=== PATIENT | male | born 1945 | race Caucasian/White ===

== ENCOUNTER 2025-06-17 09:56 | Outpatient (AMB) | payer MEDICARE, BC, SELFPAY ==
[2025-06-17 10:03] VITALS: BMI 27.1
--- NOTE | 2025-06-17 10:03 | A.PHYSOV_ITS ---
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 Patient states pain began after a walk in [facility]. Pain travels to knee area from inner left thigh Lithograph Press Operator Required: No Allergies No Known Allergies Allergy (Verified 06/17/25 10:05) HPI Comments Details: History of Present Illness The patient is an 80 year old male presenting with left leg pain. He reports the onset of pain was in the first part of May, a few weeks ago, and it started without a specific injury or preceding physical activity. The pain is located in the left leg, radiating from the groin down to the inner aspect of the knee, and it primarily occurs only when he is walking. The patient feels the pain while sitting, but it is not as severe. He takes Aleve, which helps to alleviate his symptoms. He has a history of back soreness for a while but denies any acute back pain associated with his current leg pain. The patient is retired and previously worked as a welder gas automatic. He was referred by Dr. Huang, general surgeon. He confirms a previous CT scan of the abdomen but has not had x-rays of his hips or an MRI of his low back to his knowledge. Patient presented accompanied by his . Pain Description - Onset and Timing: The pain started a couple of weeks ago, in the first part of May, without any known injury. - Location and Radiation: The pain originates in the left groin and radiates down the inner aspect of the leg to the knee, causing difficulty with walking. - Exacerbating Factors: The pain primarily occurs only when walking and is also elicited by leaning forward and lifting the left leg. - Relieving Factors: The pain is less bothersome when sitting, and taking Aleve provides some relief. Results - Imaging: A CT scan of the abdomen was previously performed. [facility] Medical History (Updated 06/17/25 @ 10:45 by Murray Heredia DO) Degenerative joint disease of left hip Left hip pain Surgical History (Updated 06/17/25 @ 10:07 by Joyce Jimenez MA) History of hernia repair History of parotidectomy Social History (Updated 06/17/25 @ 10:08 by Joyce Jimenez MA) Household Members: Spouse Alcohol intake: current Alcohol intake frequency: holidays/special occasions only Patient Tobacco Use Status: Former Tobacco user Use of substances other than those prescribed or required for medical reasons: No Current occupational status: retired Review of Systems Narrative Review of Systems - Musculoskeletal: Reports pain in the left leg radiating from the groin to the inner knee, which causes difficulty walking. Reports a history of back soreness. Denies change in bowel bladder habits. Denies any fever or chills. Physical Exam Exam Exam: Physical Exam - Musculoskeletal: Pain is reproduced with trunk flexion. Tenderness to palpation is present over the left groin. Pain and weakness noted with resisted left hip flexion. Right hip flexion is strong. Bilateral lower extremity strength is intact with foot dorsiflexion against resistance. - Neurologic: He was not able to cooperate fully with muscle motor testing involving flexion of his left hip. It was weaker, however most likely secondary to pain associated with it. Left patellar reflex was slightly diminished. No focal motor deficits distally. Patient demonstrated no upper motor neuron signs. Lumbar extension was restricted. The SI provocative maneuvers were negative. No significant tenderness with palpation over SI sulci or lumbar paraspinal muscles. Considerable degree of pain and discomfort with internal rotation of the left hip. No pain with internal rotation of the right hip. Vital Signs: BMI result Body Mass Index 27.1 Assessment & Plan Assessment & Plan (1) Left hip pain: Code(s): M25.552 - Pain in left hip Category: Medical (2) Degenerative joint disease of left hip: Code(s): M16.12 - Unilateral primary osteoarthritis, left hip Category: Medical Plan Pain Management - Analgesia: The patient is taking Aleve, which he reports helps with his pain. - Activities of Daily Living: His ability to walk is impaired by the pain. Plan Patient was informed and verbally consented to the use of an ambient scribe for clinic note documentation during this visit. 1. Left Leg Pain The patient's presentation of left leg pain, which radiates from the groin to the inner thigh, is suspicious for a hip joint etiology, as this is a common referral pattern. The fact that his pain is alleviated by naproxen, an anti- inflammatory, further supports the hypothesis of a joint problem. To investigate this further, an x-ray of the hip will be ordered. A referral will be provided for the patient to get the x-ray at the [place] office, and the results will be sent for review. Discussion Notes I explained to the patient that the pain in his inner thigh is likely referred from his hip joint, and I showed him a diagram to illustrate this. I recommended an x-ray of his hip to evaluate for a joint problem, as this is a likely cause given his symptoms and response to anti-inflammatory medication. I provided him with a printed referral for the x-ray and informed him he could go to the [place] office at his convenience without an appointment. I will review the x- ray results once they are received and follow up with him. Patient Instructions - Please go for an x-ray of your hip. - You can go to the [place] office to have the x-ray done. - You do not need an appointment for the x-ray; you can just show up. - I will receive the results and will be in touch. - You may continue taking Aleve as it seems to be helping your pain. Orders: Orders XR hip LT w PEL1V Today M16.12 - Unilateral primary osteoarthritis, left hip, M25.552 - Pain in left hip Coding Level of Care Code New Pt Level 4 (79504) Add On Problem Visit Only Diagnoses Left hip pain M25.552 Degenerative joint disease of left hip M16.12
--- OUTSIDE RECORDS SUMMARY | 2025-06-17 11:08 | XMS_ITS | Encounter Summary ---
Author Organization [facility] Address [address] [place] [address] Care Team Providers Care Herbicide Service Sales Representative Name Role Phone Bryanna Zelaya MD Primary Care Provider [phone] Encounter Details Date Type Department Care Team (Latest Contact Info) Description 06/17/2025 11:08 AM [facility] Hospital Encounter XRAY - [address] [place] [phone] Pain in left hip; Unilateral primary osteoarthritis, left hip Social History Tobacco Use Types Packs/Day Years Used Date Smoking Tobacco: Former Cigarettes 0 Q uit: 07/02/1972 Smokeless Tobacco: Never Alcohol Use Standard Drinks/Week Comments Yes 0 (1 standard drink = 0.6 oz pur e alcohol) Housing Instability Answer Date Recorde d Are you worried that in the next 2 months you may not have stable housing? No 01/12/2025 Food Access & Nutrition Answer Date Rec orded Do you have access to a vari ety of food including fruits and vegetables? Yes 01/12/2025 Access to Healthcare Answer Date Record ed Within the last 3 months, noemi parrish many times did you visit the emergency department for your medical care? 2 01/12/2025 Financial Risk Answer Date Recorded How hard is it for you to pa y for the very basics like food, housing, medical care, and air conditioning / heating? Not very hard 01/12/2025 Transportation Answer Date Recorded Has the lack of transportati on kept you from meetings, work, or from getting things needed for daily living? No Has the lack of transportati on kept you from medical appointments or from getting medications? No 01/12/2025 Food Risk Answer Date Recorded Within the past 12 months we worried whether our food would run out before we got money to buy more. Never true 01/12/2025 Within the past 12 months th e food we bought just didn't last and we didn't have money to get more. Never true 01/12/2025 Education Answer Date Recorded Do you think completing more education or training, like finishing a GED, going to college, or learning a trade, would be helpful for you? N/A 01/12/2025 Employment and Income Answer Date Recor ded During the last four weeks, have you been actively looking for work? No 01/12/2025 Living Situation Answer Date Recorded What is your living situation? Unrecognized valu e 01/12/2025 Sex and Gender Information Value Date Recorded Sex Assigned at Male 10/13/2024 4:04 PM EDT Legal Sex Male 10:22 PM EST Gender Identity Male 10/13/2024 4:04 PM EDT Sexual Orientation Straight 10/13/2024 4: 04 PM EDT documented as of this encounter Plan of Treatment Upcoming Encounters Date Type Department Care Team (Late st Contact Info) Description 07/01/2025 1:00 PM EST Office Visit Adult Medicine [address] [phone] Bryanna Zelaya MD [address] [place] [address] 01/25/2026 11:00 AM EDT Ancillary Procedure [facility] [address] [facility] [address] [place] [phone] Pending Results Name Type Priority Associated Diagnoses Date /Time XR Hip 2-3 Views Left Imaging Routine Pain in left hip Unilateral primary osteoarthritis, left hip 06/17/2025 11:20 AM EST Scheduled Orders Name Type Priority Associated Diagnoses Orde r Schedule XR Hip 2-3 Views Left Imaging Routine Pain in left hip Unilateral primary osteoarthritis, left hip Once for 1 Occurrences starting 06/17/2025 until 06/17/2025 documented as of this encounter Visit Diagnoses Diagnosis Pain in left hip Unilateral primary osteoarthritis, left hip Encounter for adjustment or management of cardiac device documented in this encounter Additional Health Concerns Assessment Noted Time PHQ-9 Depression Total Score: 0 05/14/20 25 3:32 PM EST documented as of this encounter Care Teams Herbicide Service Sales Representative Relationship Specialty Start Date End Date Bryanna Zelaya MD [address] [place] [address] PCP - General 03/15/11 documented as of this encounter
--- OUTSIDE RECORDS SUMMARY | 2025-06-17 11:57 | XMS_ITS | Encounter Summary ---
Author Organization [facility] Address [address] [place] [address] Phone Care Team Providers Care Pigment Making Supervisor Name Role Phone Bryanna Zelaya MD Primary Care Provider [phone] Philip Ritter MD Unavailable [phone] Alexandra Carpenter RN Unavailable [email or web address] Lisa Xiong RN Unavailable [email or web address] Encounter Details Date Type Department Care Team (Late st Contact Info) Description 10/09/2022 Procedure Pass [facility] [address] [place] [address] Social History Tobacco Use Types Packs/Day Years Used Date Smoking Tobacco: Former Cigarettes Q uit: 09/22/1970 Smokeless Tobacco: Never Alcohol Use Standard Drinks/Week Comments Not Currently 0 (1 standard drink = 0.6 oz pur e alcohol) Sex and Gender Information Value Date Recorded Sex Assigned at Male 07/09/2017 9:36 AM EST Legal Sex Male 2:02 PM EDT Gender Identity Male Sexual Orientation Straight documented as of this encounter Plan of Treatment Upcoming Encounters Date Type Department Care Team (Late st Contact Info) Description 04/17/2025 Procedure Pass [address] [address] 04/17/2025 Procedure Pass [address] [address] 07/06/2025 1:00 PM EST Appointment [facility], Ct Scan - [facility] [address] [place] [address] Philip Ritter MD [address] [place] [address] 7 [place] [address] [email or web address] 07/14/2025 11:30 AM EST Office Visit [facility] [address] [place] [address] Philip Ritter MD [address] [place] [address] 7 [place] [address] [email or web address] documented as of this encounter Visit Diagnoses Not on filedocumented in this encounter Care Teams Pigment Making Supervisor Relationship Specialty Start Date End Date Bryanna Zelaya MD [address] [place] [address] PCP - General Internal Medicine 11/15/15 Philip Ritter MD [address] [place] [address] [email or web address] Primary Oncologist Surgical Oncology 09/05/22 Alexandra Carpenter, RN [address] [place] [phone] [email or web address] Primary Infusion Nurse 09/07/22 Lisa Xiong RN [address] [place] [address] [email or web address] Associate Infusion Nurse 09/14/22 documented as of this encounter Additional Source Comments The information contained in this document represents components of the legal health record. It is not the complete legal health record.[facility]
--- OUTSIDE RECORDS SUMMARY | 2025-06-17 11:57 | XMS_ITS | Encounter Summary ---
Author Organization [facility] Address [address] [place] [address] Phone Care Team Providers Care Vp Informatics Name Role Phone Bryanna Zelaya MD Primary Care Provider [phone] Philip Ritter MD Unavailable [phone] Alexandra Carpenter RN Unavailable [email or web address] Lisa Xiong RN Unavailable [email or web address] Encounter Details Date Type Department Care Team (Late st Contact Info) Description 02/14/2023 Procedure Pass [facility], Ct Scan - [address] [id number] Social History Tobacco Use Types Packs/Day Years Used Date Smoking Tobacco: Former Cigarettes Q uit: 09/22/1970 Smokeless Tobacco: Never Alcohol Use Standard Drinks/Week Comments Not Currently 0 (1 standard drink = 0.6 oz pur e alcohol) ' few times per week Education Answer Date Recorded Are you interested in more education? Not on zac e 10/27/2022 Are you concerned about learning? Not on file 10/27/2022 No 10/27/2022 No 10/27/2022 Digital Access Answer Date Recorded No 11/22/2022 No 11/22/2022 Reliable internet access at home? Not on file 11/22/2022 Device with a working camera? Not on file Sex and Gender Information Value Date Recorded Sex Assigned at Male 07/09/2017 9:36 AM EST Legal Sex Male 2:02 PM EDT Gender Identity Male Sexual Orientation Straight documented as of this encounter Plan of Treatment Upcoming Encounters Date Type Department Care Team (Late st Contact Info) Description 04/17/2025 Procedure Pass [address] [address] 04/17/2025 Procedure Pass [address] [address] 07/06/2025 1:00 PM EST Appointment [address] [address] Philip Ritter MD [address] [place] [address] [email or web address] 07/14/2025 11:30 AM EST Office [facility] [address] [place] [address] Philip Ritter MD [address] [place] [phone] VANESSA@[email or web address] documented as of this encounter Visit Diagnoses Not on filedocumented in this encounter Care Teams Vp Informatics Relationship Specialty Start Date End Date Bryanna Zelaya MD [address] [place] [address] PCP - General Internal Medicine 11/15/15 Philip Ritter MD [address] [place] [address] [email or web address] Primary Oncologist Surgical Oncology 09/05/22 Alexandra Carpenter RN [address] [place] [phone] [email or web address] Primary Infusion Nurse 09/07/22 Lisa Xiong RN [address] [place] [address] [email or web address] Associate Infusion Nurse 09/14/22 documented as of this encounter Additional Source Comments The information contained in this document represents components of the legal health record. It is not the complete legal health record.[facility]
--- OUTSIDE RECORDS SUMMARY | 2025-06-17 11:57 | XMS_ITS | Encounter Summary ---
Author Organization [facility] Address [address] [place] [address] Phone Care Team Providers Care Medical Sales Specialist Name Role Phone Bryanna Zelaya MD Primary Care Provider [phone] Philip Ritter MD Unavailable [phone] Alexandra Carpenter RN Unavailable [email or web address] Lisa Xiong RN Unavailable [email or web address] Encounter Details Date Type Department Care Team (Late st Contact Info) Description 12/24/2024 Procedure Pass [facility], Ct Scan - [address] [id number] Social History Tobacco Use Types Packs/Day Years [...] with a working camera? Not on file Intimate Partner Violence Answer Date R ecorded Are you denied basic needs s uch as food, clothing, or medical care? No 08/24/2023 In the past 12 months have y ou been in a relationship with a person who hurts, threatens, or tries to control you? No 08/24/2023 Are you denied basic needs s uch as food, clothing, or medical care? No 08/24/2023 In the past 12 months have y ou been in a relationship with a person who hurts, threatens, or tries to control you? No 08/24/2023 Sex and Gender Information Value Date Recorded Sex Assigned at Male 07/09/2017 9:36 AM EST Legal Sex Male 2:02 PM EDT Gender Identity Male Sexual Orientation Straight documented as of this encounter Plan of Treatment Upcoming Encounters Date Type Department Care Team (Late st Contact Info) Description 04/17/2025 Procedure Pass [address] [address] 04/17/2025 Procedure Pass [address] [address] 07/06/2025 1:00 PM EST Appointment [address] [address] Philip Ritter MD [address] [place] [address] [email or web address] 07/14/2025 11:30 AM EST Office [facility] [address] [place] [address] Philip Ritter MD [address] [place] [address] VANESSA@[email or web address] documented as of this encounter Visit Diagnoses Not on filedocumented in this encounter Care Teams Medical Sales Specialist Relationship Specialty Start Date End Date Bryanna Zelaya MD [address] [place] [phone] PCP - General Internal Medicine 11/15/15 Philip Ritter MD [address] [place] [address] [email or web address] Primary Oncologist Surgical Oncology 09/05/22 Alexandra Carpenter, RN [address] [place] [phone] [email or web address] Primary Infusion Nurse 09/07/22 Lisa Xiong RN [address] [place] [address] [email or web address] Associate Infusion Nurse 09/14/22 documented as of this encounter Additional Source Comments The information contained in this document represents components of the legal health record. It is not the complete legal health record.[facility]
--- OUTSIDE RECORDS SUMMARY | 2025-06-17 11:57 | XMS_ITS | Encounter Summary ---
Author Organization [facility] Address [address] [place] [address] Phone Care Team Providers Care Small Products Assembler Name Role Phone Bryanna Zelaya MD Primary Care Provider [phone] Philip Ritter MD Unavailable [phone] Alexandra Carpenter RN Unavailable [email or web address] Lisa Xiong RN Unavailable [email or web address] Encounter Details Date Type Department Care Team (Late st Contact Info) Description 07/04/2024 Procedure Pass [facility], Ct Scan - [address] [id number] Social History Tobacco Use Types Packs/Day Years [...] st Contact Info) Description 04/17/2025 Procedure Pass [address] [address] 04/17/2025 Procedure Pass [address] [address] 07/06/2025 1:00 PM EST Appointment [address] [address] Philip Ritter MD [address] [place] [address] VANESSA@[email or web address] 07/14/2025 11:30 AM EST Office [facility] [address] [place] [address] Philip Ritter MD [address] [place] [address] VANESSA@[email or web address] documented as of this encounter Visit Diagnoses Not on filedocumented in this encounter Care Teams Small Products Assembler Relationship Specialty Start Date End Date Bryanna Zelaya MD [address] [place] [phone] PCP - General Internal Medicine 11/15/15 Philip Ritter MD [address] [place] [address] [email or web address] Primary Oncologist Surgical Oncology 09/05/22 Alexandra Carpenter, RN [address] [place] [phone] [email or web address] Primary Infusion Nurse 09/07/22 Lisa Xiong RN [address] [place] [phone] [email or web address] Associate Infusion Nurse 09/14/22 documented as of this encounter Additional Source Comments The information contained in this document represents components of the legal health record. It is not the complete legal health record.[facility]
--- OUTSIDE RECORDS SUMMARY | 2025-06-17 11:57 | XMS_ITS | Encounter Summary ---
Author Organization [facility] Address [address] [place] [address] Phone Care Team Providers Care Integrity Director Name Role Phone Bryanna Zelaya MD Primary Care Provider [phone] Philip Ritter MD Unavailable [phone] Alexandra Carpenter RN Unavailable [email or web address] Lisa Xiong RN Unavailable [email or web address] Encounter Details Date Type Department Care Team (Late st Contact Info) Description 12/24/2024 Procedure Pass [facility], Ct Scan - [address] [id number] Social History Tobacco Use Types Packs/Day Years [...] st Contact Info) Description 04/17/2025 Procedure Pass [address] [address] 04/17/2025 Procedure Pass [address] [address] 07/06/2025 1:00 PM EST Appointment [address] [address] Philip Ritter MD [address] [place] [address] [email or web address] 07/14/2025 11:30 AM EST Office [facility] [address] [place] [address] Philip Ritter MD [address] [place] [address] VANESSA@[email or web address] documented as of this encounter Visit Diagnoses Not on filedocumented in this encounter Care Teams Integrity Director Relationship Specialty Start Date End Date Bryanna Zelaya MD [address] [place] [phone] PCP - General Internal Medicine 11/15/15 Philip Ritter MD [address] [place] [address] [email or web address] Primary Oncologist Surgical Oncology 09/05/22 Alexandra Carpenter, RN [address] [place] [phone] [email or web address] Primary Infusion Nurse 09/07/22 Lisa Xiong RN [address] [place] [address] [email or web address] Associate Infusion Nurse 09/14/22 documented as of this encounter Additional Source Comments The information contained in this document represents components of the legal health record. It is not the complete legal health record.[facility]
--- OUTSIDE RECORDS SUMMARY | 2025-06-17 11:57 | XMS_ITS | Encounter Summary ---
Author Organization [facility] Address [address] [place] [address] Phone Care Team Providers Care Nurse School Name Role Phone Bryanna Zelaya MD Primary Care Provider [phone] Philip Ritter MD Unavailable [phone] Alexandra Carpenter RN Unavailable [email or web address] Lisa Xiong RN Unavailable [email or web address] Encounter Details Date Type Department Care Team (Late st Contact Info) Description 10/13/2022 Procedure Pass [facility] Cardiovascular And Interventional Radiology [address] [place] [address] Social History Tobacco Use Types Packs/Day Years [...] st Contact Info) Description 04/17/2025 Procedure Pass [address] [address] 04/17/2025 Procedure Pass [address] [address] 07/06/2025 1:00 PM EST Appointment [facility], Ct Scan - [facility] [place] [address] [place] [address] hPilip Ritter MD [address] [place] [address] 7 [place] [address] [email or web address] 07/14/2025 11:30 AM EST Office Visit [facility] [address] [place] [phone] Philip Ritter MD [address] [place] [address] 7 [place] [address] VANESSA@[email or web address] documented as of this encounter Visit Diagnoses Not on filedocumented in this encounter Care Teams Nurse School Relationship Specialty Start Date End Date Bryanna Zelaya MD [address] [place] [address] PCP - General Internal Medicine 11/15/15 Philip Ritter MD [address] [place] [address] [email or web address] Primary Oncologist Surgical Oncology 09/05/22 Alexandra Carpenter, RN [address] [place] [phone] [email or web address] Primary Infusion Nurse 09/07/22 Lisa Xiong RN [address] [place] [address] [email or web address] Associate Infusion Nurse 09/14/22 documented as of this encounter Additional Source Comments The information contained in this document represents components of the legal health record. It is not the complete legal health record.[facility]
--- OUTSIDE RECORDS SUMMARY | 2025-06-17 11:57 | XMS_ITS | Encounter Summary ---
Author Organization [facility] Address [address] [place] [address] Phone Care Team Providers Care Buzzle Buffer Name Role Phone Bryanna Zelaya MD Primary Care Provider [phone] Philip Ritter MD Unavailable [phone] Alexandra Carpenter RN Unavailable [email or web address] Lisa Xiong RN Unavailable [email or web address] Encounter Details Date Type Department Care Team (Late st Contact Info) Description 07/04/2024 Procedure Pass [facility], Ct Scan - [address] [id number] Social History Tobacco Use Types Packs/Day Years [...] st Contact Info) Description 04/17/2025 Procedure Pass [address] [address] 04/17/2025 Procedure Pass [address] [address] 07/06/2025 1:00 PM EST Appointment [address] [address] Philip Ritter MD [address] [place] [address] VANESSA@[email or web address] 07/14/2025 11:30 AM EST Office [facility] [address] [place] [address] Philip Ritter MD [address] [place] [address] VANESSA@[email or web address] documented as of this encounter Visit Diagnoses Not on filedocumented in this encounter Care Teams Buzzle Buffer Relationship Specialty Start Date End Date Bryanna Zelaya MD [address] [place] [phone] PCP - General Internal Medicine 11/15/15 Philip Ritter MD [address] [place] [address] VANESSA@[email or web address] Primary Oncologist Surgical Oncology 09/05/22 Alexandra Carpenter, RN [address] [place] [phone] [email or web address] Primary Infusion Nurse 09/07/22 Lisa Xiong RN [address] [place] [address] [email or web address] Associate Infusion Nurse 09/14/22 documented as of this encounter Additional Source Comments The information contained in this document represents components of the legal health record. It is not the complete legal health record.[facility]
--- OUTSIDE RECORDS SUMMARY | 2025-06-17 11:57 | XMS_ITS | Encounter Summary ---
Author Organization [facility] Address [address] [place] [address] Phone Care Team Providers Care Painter Sign Maintenance Name Role Phone Bryanna Zelaya MD Primary Care Provider [phone] Philip Ritter MD Unavailable [phone] Alexandra Carpenter RN Unavailable [email or web address] Lisa Xiong RN Unavailable [email or web address] Encounter Details Date Type Department Care Team (Late st Contact Info) Description 02/14/2023 Procedure Pass [facility], Ct Scan - [address] [id number] Social History Tobacco Use Types Packs/Day Years [...] st Contact Info) Description 04/17/2025 Procedure Pass [address] [address] 04/17/2025 Procedure Pass [address] [address] 07/06/2025 1:00 PM EST Appointment [address] [address] Philip Ritter MD [address] [place] [address] VANESSA@[facility] 07/14/2025 11:30 AM EST Office [facility] [address] [place] [address] Philip Ritter MD [address] [place] [address] VANESSA@[facility] documented as of this encounter Visit Diagnoses Not on filedocumented in this encounter Care Teams Painter Sign Maintenance Relationship Specialty Start Date End Date Bryanna Zelaya MD [address] [place] [address] PCP - General Internal Medicine 11/15/15 Philip Ritter MD [address] [place] [address] [email or web address] Primary Oncologist Surgical Oncology 09/05/22 Alexandra Carpenter RN [address] [place] [phone] [email or web address] Primary Infusion Nurse 09/07/22 Lisa Xiong RN [address] [place] [address] [email or web address] Associate Infusion Nurse 09/14/22 documented as of this encounter Additional Source Comments The information contained in this document represents components of the legal health record. It is not the complete legal health record.[facility]
--- OUTSIDE RECORDS SUMMARY | 2025-06-17 11:57 | XMS_ITS | Encounter Summary ---
Author Organization [facility] Address [address] [place] [address] Phone Care Team Providers Care Pi/Senior Research Associate Name Role Phone Bryanna Zelaya MD Primary Care Provider [phone] Philip Ritter MD Unavailable [phone] Alexandra Carpenter RN Unavailable [email or web address] Lisa Xiong RN Unavailable [email or web address] Encounter Details Date Type Department Care Team (Late st Contact Info) Description 05/04/2023 Procedure Pass [facility], Ct Scan - [address] [phone] Social History Tobacco Use Types Packs/Day Years [...] st Contact Info) Description 04/17/2025 Procedure Pass [address] [address] 04/17/2025 Procedure Pass [address] [address] 07/06/2025 1:00 PM EST Appointment [address] [address] Philip Ritter MD [address] [place] [address] VANESSA@[email or web address] 07/14/2025 11:30 AM EST Office [facility] [address] [place] [address] Philip Ritter MD [address] [place] [address] VANESSA@[email or web address] documented as of this encounter Visit Diagnoses Not on filedocumented in this encounter Care Teams Pi/Senior Research Associate Relationship Specialty Start Date End Date Bryanna Zelaya MD [address] [place] [address] PCP - General Internal Medicine 11/15/15 Philip Ritter MD [address] [place] [address] VANESSA@[email or web address]. [email or web address] Primary Oncologist Surgical Oncology 09/05/22 Alexandra Carpenter RN [address] [place] [phone] [email or web address] Primary Infusion Nurse 09/07/22 Lisa Xiong RN [address] [place] [address] [email or web address] Associate Infusion Nurse 09/14/22 documented as of this encounter Additional Source Comments The information contained in this document represents components of the legal health record. It is not the complete legal health record.[facility]
--- OUTSIDE RECORDS SUMMARY | 2025-06-17 11:57 | XMS_ITS | Encounter Summary ---
Author Organization [facility] Address [address] [place] [address] Phone Care Team Providers Care Candle Wicker Name Role Phone Bryanna Zelaya MD Primary Care Provider [phone] Philip Ritter MD Unavailable [phone] Alexandra Carpenter RN Unavailable [email or web address] Lisa Xiong RN Unavailable [email or web address] Encounter Details Date Type Department Care Team (Late st Contact Info) Description 08/25/2020 [facility] [address] [place] [address] Social History Tobacco Use Types Packs/Day Years Used Date Smoking Tobacco: Former Alcohol Use Standard Drinks/Week Comments No 0 (1 standard drink = 0.6 oz pur e alcohol) Sex and Gender Information Value Date Recorded Sex Assigned at Male 07/09/2017 9:36 AM EST Legal Sex Male 2:02 PM EDT Gender Identity Male Sexual Orientation Straight documented as of this encounter Plan of Treatment Upcoming Encounters Date Type Department Care Team (Late st Contact Info) Description 04/17/2025 Procedure Pass [address] [address] 04/17/2025 Procedure Pass [address] [address] 07/06/2025 1:00 PM EST Appointment [address] [place] [address] Philip Ritter MD [address] [place] [address] 7 [place] [address] VANESSA@[facility] 07/14/2025 11:30 AM EST Office Visit [facility] Eye [facility] Head [facility] Ne[facility] Cancer [facility] [address] [place] [address] Philip Ritter MD [address] [place] [address] 7 [place] [address] VANESSA@[facility] documented as of this encounter Visit Diagnoses Not on filedocumented in this encounter Care Teams Candle Wicker Relationship Specialty Start Date End Date Bryanna Zelaya MD [address] [place] [address] PCP - General Internal Medicine 11/15/15 Philip Ritter MD [address] [place] [address] [email or web address] Primary Oncologist Surgical Oncology 09/05/22 Alexandra Carpenter, RN [address] [place] [phone] [email or web address] Primary Infusion Nurse 09/07/22 Lisa Xiong RN [address] [place] [address] [email or web address] Associate Infusion Nurse 09/14/22 documented as of this encounter Additional Source Comments The information contained in this document represents components of the legal health record. It is not the complete legal health record.[facility]
--- OUTSIDE RECORDS SUMMARY | 2025-06-17 11:57 | XMS_ITS | Encounter Summary ---
Author Organization [facility] Address [address] [place] [address] Phone Care Team Providers Care Mattress Specialist Name Role Phone Bryanna Zelaya MD Primary Care Provider [phone] Philip Ritter MD Unavailable [phone] Alexandra Carpenter RN Unavailable [email or web address] Lisa Xiong RN Unavailable [email or web address] Encounter Details Date Type Department Care Team (Late st Contact Info) Description 05/04/2023 Procedure Pass [facility], Ct Scan - [address] [phone] Social History Tobacco Use Types Packs/Day Years [...] st Contact Info) Description 04/17/2025 Procedure Pass [address] [address] 04/17/2025 Procedure Pass [address] [address] 07/06/2025 1:00 PM EST Appointment [address] [address] Philip Ritter MD [address] [place] [address] VANESSA@[email or web address] 07/14/2025 11:30 AM EST Office [facility] [address] [place] [address] Philip Ritter MD [address] [place] [address] VANESSA@[email or web address] documented as of this encounter Visit Diagnoses Not on filedocumented in this encounter Care Teams Mattress Specialist Relationship Specialty Start Date End Date Bryanna Zelaya MD [address] [place] [address] PCP - General Internal Medicine 11/15/15 Philip Ritter MD [address] [place] [address] VANESSA@[email or web address] Primary Oncologist Surgical Oncology 09/05/22 Alexandra Carpenter RN [address] [place] [phone] [email or web address] Primary Infusion Nurse 09/07/22 Lisa Xiong RN [address] [place] [address] [email or web address] Associate Infusion Nurse 09/14/22 documented as of this encounter Additional Source Comments The information contained in this document represents components of the legal health record. It is not the complete legal health record.[facility]
--- OUTSIDE RECORDS SUMMARY | 2025-06-17 11:58 | XMS_ITS | Clinical Summary ---
Author Organization [facility] Prior to 11/29/[address] [place] [address] Care Team Providers Care Senior Manufacturing Technician Name Role Phone Unavailable Primary Care Provider Unavailabl e Social History Tobacco Use Types Packs/Day Years Used Date Smoking Tobacco: Never Assessed Sex and Gender Information Value Date Recorded Sex Assigned at Not on file Gender Identity Not on file Sexual Orientation Not on file Plan of Treatment Health Maintenance Due Date Last Done Comments COVID-19 Vaccine (#1) 1944 Depression Screening 1956 Preventative Health Evaluation 1962 DTap / Tdap / Td (1 - Tdap) 1963 Shingrix-Zoster Vaccine (1 of 2) 1994 Fall Risk Assessment 2009 Pneumococcal Vaccine (1 of 1 - PCV) 2009 RSV Adult > 60+ Yrs or Pregn ant (1 - 1-dose 75+ series) 2019 Influenza Vaccine (#1) 2025 Hepatitis B Vaccines Aged Out No long er eligible based on patient's age to complete this topic RSV Ped < 20 months Aged Out No longe r eligible based on patient's age to complete this topic
--- OUTSIDE RECORDS SUMMARY | 2025-06-17 11:58 | XMS_ITS | Encounter Summary ---
Author Organization [facility] Address [address] [place] [address] Phone Care Team Providers Care Air And Hydronic Balancing Technician Name Role Phone Bryanna Zelaya MD Primary Care Provider [phone] Philip Ritter MD Unavailable [phone] Alexandra Carpenter RN Unavailable [email or web address] Lisa Xiong RN Unavailable [email or web address] Encounter Details Date Type Department Care Team (Late st Contact Info) Description 08/10/2020 Procedure Pass [facility] - CT Main [address] [address] Social History Tobacco Use Types Packs/Day Years [...] st Contact Info) Description 04/17/2025 Procedure Pass [address] [address] 04/17/2025 Procedure Pass [address] [address] 07/06/2025 1:00 PM EST Appointment [address] [place] [address] Philip Ritter MD [address] [place] [address] 7 [place] [address] VANESSA@[email or web address] 07/14/2025 11:30 AM EST Office Visit [facility] Head [facility] Ne[facility] Cancer Program [address] [place] [address] Philip Ritter MD [address] [place] [address] 7 [place] [address] VANESSA@[email or web address] documented as of this encounter Visit Diagnoses Not on filedocumented in this encounter Care Teams Air And Hydronic Balancing Technician Relationship Specialty Start Date End Date Bryanna Zelaya MD [address] [place], [place] PCP - General Internal Medicine 11/15/15 Philip Ritter MD [address] [place] [address] VANESSA@[email or web address] Primary Oncologist Surgical Oncology 09/05/22 Alexandra Carpenter, RN [address] [place] [phone] Primary Infusion Nurse 09/07/22 Lisa Xiong RN [address] [place] [address] [email or web address] Associate Infusion Nurse 09/14/22 documented as of this encounter Additional Source Comments The information contained in this document represents components of the legal health record. It is not the complete legal health record.[facility]
--- OUTSIDE RECORDS SUMMARY | 2025-06-17 11:58 | XMS_ITS | Encounter Summary ---
Author Organization [facility] Address [address] [place] [address] Phone Care Team Providers Care Section Laborer Name Role Phone Bryanna Zelaya MD Primary Care Provider [phone] Philip Ritter MD Unavailable [phone] Alexandra Carpenter RN Unavailable [email or web address] Lisa Xiong RN Unavailable [email or web address] Encounter Details Date Type Department Care Team (Late st Contact Info) Description 08/10/2020 Procedure Pass [facility] - CT Main [address] [address] Social History Tobacco Use Types Packs/Day Years [...] st Contact Info) Description 04/17/2025 Procedure Pass [address] [address] 04/17/2025 Procedure Pass [address] [address] 07/06/2025 1:00 PM EST Appointment [address] [place] [address] Philip Ritter MD [address] [place] [address] 7 [place] [address] VANESSA@[email or web address] 07/14/2025 11:30 AM EST Office Visit [facility] and Ear Head and Neck Cancer Program [address] [place] [address] Philip Ritter MD [address] [place] [address] 7 [place] [address] VANESSA@[facility] documented as of this encounter Visit Diagnoses Not on filedocumented in this encounter Care Teams Section Laborer Relationship Specialty Start Date End Date Bryanna Zelaya MD [address] [place], [place] PCP - General Internal Medicine 11/15/15 Philip Ritter MD [address] [place] [address] [email or web address] Primary Oncologist Surgical Oncology 09/05/22 Alexandra Carpenter, RN [address] [place] [phone] Primary Infusion Nurse 09/07/22 Lisa Xiong RN [address] [place] [address] [email or web address] Associate Infusion Nurse 09/14/22 documented as of this encounter Additional Source Comments The information contained in this document represents components of the legal health record. It is not the complete legal health record.[facility]
--- OUTSIDE RECORDS SUMMARY | 2025-06-17 11:59 | XMS_ITS | Encounter Summary ---
Author Organization [facility] Address [address] [place] [address] Phone Care Team Providers Care Pressing Machine Operator Name Role Phone Bryanna Zelaya MD Primary Care Provider [phone] Philip Ritter MD Unavailable [phone] Alexandra Carpenter RN Unavailable [email or web address] Lisa Xiong RN Unavailable [email or web address] Encounter Details Date Type Department Care Team (Late st Contact Info) Description 11/23/2021 Procedure Pass [facility] DEPT [address] [place] [address] Social History Tobacco Use Types Packs/Day Years Used Date Smoking Tobacco: Former Cigarettes Q uit: 09/22/1970 Smokeless Tobacco: Never Alcohol Use Standard Drinks/Week Comments Yes 9 (1 standard drink = 0.6 oz pur e alcohol) Sex and Gender Information Value Date Recorded Sex Assigned at Male 07/09/2017 9:36 AM EST Legal Sex Male 2:02 PM EDT Gender Identity Male Sexual Orientation Straight documented as of this encounter Functional Status * Calculated C-SSRS Risk Score (Lifetime/Recent) Answer Date of Assessment Author No Risk Indicated 11/23/2021 4:19 PM Cherry Benson RN * [place] Suicide Severity Rating Scale (Screener/Recent Self-Report) Question Answer Date of Assessment Author 1. Wish to be (Past 1 Month) No 11/23/2021 4:19 PM Kristin Benson RN 2. Non-Specific Active Suicidal Thoughts (Past 1 Month) No 11/23/2021 4:19 PM EDT Kristin Mas, STEPHEN 6. Suicidal Behavior (Lifetime) No 11/23/2021 4:19 PM EDT Kristin Mas, STEPHEN documented as of this encounter Plan of Treatment Upcoming Encounters Date Type Department Care Team (Late st Contact Info) Description 04/17/2025 Procedure Pass [address] [address] 04/17/2025 Procedure Pass [address] [address] 07/06/2025 1:00 PM EST Appointment [address] [address] Philip Ritter MD [address] [place] [address] VANESSA@[email or web address] 07/14/2025 11:30 AM EST Office [facility] [address] [place] [address] Philip Ritter MD [address] [place] [address] VANESSA@[email or web address] documented as of this encounter Visit Diagnoses Not on filedocumented in this encounter Care Teams Pressing Machine Operator Relationship Specialty Start Date End Date Bryanna Zelaya MD [address] [place] [address] PCP - General Internal Medicine 11/15/15 Philip Ritter MD [address] [place] [address] VANESSA@[email or web address] derek Primary Oncologist Surgical Oncology 09/05/22 Alexandra Carpenter, RN [address] [place] [phone] [email or web address] Primary Infusion Nurse 09/07/22 Lisa Xiong, STEPHEN [address] [place] [address] [email or web address] Associate Infusion Nurse 09/14/22 documented as of this encounter Additional Source Comments The information contained in this document represents components of the legal health record. It is not the complete legal health record.[facility]
--- OUTSIDE RECORDS SUMMARY | 2025-06-17 11:59 | XMS_ITS | Clinical Summary ---
Author Organization [facility] Address [address] [place] [address] Phone Care Team Providers Care Nozzleman Name Role Phone Bryanna Zelaya MD Primary Care Provider [phone] Philip Ritter MD Unavailable [phone] Alexandra Carpenter RN Unavailable [email or web address] Lisa Xiong RN Unavailable [email or web address] [email or web address] No known active allergies Medications amLODIPine (NORVASC) 5 MG tablet Take 10 mg by mouth daily. Active hydroCHLOROthia zide (HYDRODIURIL) 25 MG tablet Take 25 mg by mouth daily. Active lisinopril (PRINIVIL,ZESTR IL) 5 MG tablet Take 20 mg by mouth daily. 40 mg QD Active atenolol (TENORMIN) 50 mg tablet Take 25 mg by mouth. 05/14/2020 Active acetaminophen (TYLENOL) 325 mg tablet Take 650 mg by mouth every 6 (six) hours as needed for mild pain or 1-3 (on a general 0-10 scale). Active cyanocobalamin, vitamin B-12, 100 MCG tablet Take 100 mcg by mouth daily. Active levothyroxine (SYNTHROID, LEVOTHROID) 50 MCG tablet Take 50 mcg by mouth daily. Active vitamins A,C,E-zinc-fernanda er (PRESERVISION AREDS) 4,296 mcg-226 mg-90 mg Cap Take 1 capsule by mouth 2 (two) times a day with meals. 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 Mr. 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 He initially presented to us in August of 2020 with a new right neck mass. FNA of his neck node was suspicious but not diagnostic for SCC. He was seen by Dr. Umang Vincent who was planning for re-resection of the primary site and right superficial parotidectomy and neck dissection. Although he was eligible for the neoadjuvant cemiplimab study he declined participation and went on to have parotidectomy and neck dissection followed by radiation therapy. He a had local recurrence at the right forehead/preauricular region and biopsy on 11/23/21 showed squamous cell carcinoma with deep PNI. He underwent resection and reconstruction with split thickness skin graft on 12/06/21. He has been followed closely by both ENT and Dermatology services and generally doing well. He had CT scans of the head, neck, and chest on 08/02/2022, which showed new enhancing areas in the prior surgical bed in the right frontotemporal and post-auricular region. A biopsy was obtained on 08/08/2021 and this showed an invasive squamous cell carcinoma with likely LVI in the posterior scalp area. Given the recurrence after surgery and prior radiation, his case was discussed at Tumor Board, and the recommendation was to consider immune checkpoint blockade. Mr. Jeronimo agreed and he started cemiplimab on 09/13/2022 and received four cycles c/b mild but bothersome immune-related arthralgias and hypothyroidism. He was started on Indocin, which did help with the arthralgia and he was referred to [facility] Rheumatology; we held further ICI. We have been following him since and he feels well. His last CT scans of the neck and chest on 12/27/2024 showed no evidence of disease. There were incidental findings that included olfactory polyp, small lung groundglass nodules most consistent with infectious/inflammatory process and unchanged mildly enlarged mediastinal lymph nodes. Plan to repeat CT scans and blood work in 6 months. I reviewed his prior medical notes, results of all lab and radiology reports. In addition, I spent time today preparing to see the patient by reviewing his medical records, performing a history and physical examination, and ordered repeat imaging and lab work for his next visit. I also spent time discussing his case with the surgical providers in our multi-disciplinary clinic. In addition, I disclosed my role as GLOBAL MARKETING INTERN at [employer] and explained that this position could be perceived as a conflict of interest. I did ask him if he would be more comfortable seeing a different provide and would be happy to expedite transition of his care to one of my colleagues. He understands the situation and has agreed to maintain me as his oncology provider at [facility] and [facility]. 2. History of aortic valve replacement with no OR or other history of angina. 3. History of Lyme disease, without complications. 4. History of ocular disorders, including cataracts, macular degeneration, and corneal abrasion. Virtual Visit Attestation Modality: Interactive audio (phone only) Provider Location, state disclosed to patient: Practice location Patient Location: Home Patient State: [place] Time attestation: I personally spent a total of 34 minutes on care for this patient on the date of the encounter, of which 23 minutes was spent with the patient during the visit. I have maintained a long-term (or longitudinal) relationship with the patient, overseeing the care of their Squamous Cell Carcinoma. This has significantly influenced my decision-making and treatment plans during today s encounter. Assessment & Plan (05/20/2024 9:46 AM EST): 1. Mr. 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 He initially presented to us in August of 2020 with a new right neck mass. FNA of his neck node was suspicious but not diagnostic for SCC. He was seen by Dr. Umang Vincent who was planning for re-resection of the primary site and right superficial parotidectomy and neck dissection. Although he was eligible for the neoadjuvant cemiplimab study he declined participation and went on to have parotidectomy and neck dissection followed by radiation therapy. He a had local recurrence at the right forehead/preauricular region and biopsy on 11/23/21 showed squamous cell carcinoma with deep PNI. He underwent resection and reconstruction with split thickness skin graft on 12/06/21. He has been followed closely by both ENT and Dermatology services and generally doing well. He had CT scans of the head, neck, and chest on 08/02/2022, which showed new enhancing areas in the prior surgical bed in the right frontotemporal and post-auricular region. A biopsy was obtained on 08/08/2022 and this showed an invasive squamous cell carcinoma with likely LVI in the posterior scalp area. Given the recurrence after surgery and prior radiation, his case was discussed at Tumor Board, and the recommendation was to consider immune checkpoint blockade. Mr. Jeronimo agreed and he started cemiplimab on 09/13/2022 and received four cycles c/b mild but bothersome immune-related arthralgias and hypothyroidism (last dose 11/17/2022). He was started on Indocin, which helped with the arthralgia and he was referred to [facility] Rheumatology; we held further ICI. He had a complete response. We have been following him since and he feels well; he did have a local skin CSCC in the right neck biopsied on 01/29/2024 and this showed invasive CSCC, moderately differentiated. He had a repeat CT scan of the neck on 05/06/2024 which showed no evidence of disease. I sent him for blood work today and will review. Plan to see him again in 3 months for imaging and labs. I reviewed his prior medical notes, results of all lab and radiology reports. In addition, I spent time today preparing to see the patient by reviewing his medical records, performing a history and physical examination, and ordered repeat imaging and lab work for his next visit. I also spent time discussing his case with the surgical providers in our multi-disciplinary clinic. In addition, I disclosed my role as GLOBAL MARKETING INTERN at [employer] and explained that this position could be perceived as a conflict of interest. I did ask him if he would be more comfortable seeing a different provide and would be happy to expedite transition of his care to one of my colleagues. He understands the situation and has agreed to maintain me as his oncology provider at [facility] and [facility]. 2. History of aortic valve replacement with no OR or other history of angina. 3. History of Lyme disease, without complications. 4. History of ocular disorders, including cataracts, macular degeneration, and corneal abrasion. I personally spent a total of 25 minutes on care for this patient on the date of the encounter. This includes lmbw-zq-egtv time during the visit as well as non ddnc-ke-esau time spent on chart review, documentation, and care coordination. I have maintained a long-term (or longitudinal) relationship with the patient, overseeing the care of their Squamous Cell Carcinoma. This has significantly influenced my decision-making and treatment plans during today s encounter. Assessment & Plan (01/29/2024 12:08 PM EDT): 1. Mr. 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 He initially presented to us in August of 2020 with a new right neck mass. FNA of his neck node was suspicious but not diagnostic for SCC. He was seen by Dr. Umang Vincent who was planning for re-resection of the primary site and right superficial parotidectomy and neck dissection. Although he was eligible for the neoadjuvant cemiplimab study he declined participation and went on to have parotidectomy and neck dissection followed by radiation therapy. He a had local recurrence at the right forehead/preauricular region and biopsy on 11/23/21 showed squamous cell carcinoma with deep PNI. He underwent resection and reconstruction with split thickness skin graft on 12/06/21. He has been followed closely by both ENT and Dermatology services and generally doing well. He had CT scans of the head, neck, and chest on 08/02/2022, which showed new enhancing areas in the prior surgical bed in the right frontotemporal and post-auricular region. A biopsy was obtained on 08/08/2021 and this showed an invasive squamous cell carcinoma with likely LVI in the posterior scalp area. Given the recurrence after surgery and prior radiation, his case was discussed at Tumor Board, and the recommendation was to consider immune checkpoint blockade. Mr. Jeronimo agreed and he started cemiplimab on 09/13/2022 and received four cycles c/b mild but bothersome immune-related arthralgias and hypothyroidism. He was started on Indocin, which did help with the arthralgia and he was referred to [facility] Rheumatology; we held further ICI. We have been following him since and he feels well. His last CT scans of the neck and chest on 11/12/2023 showed no evidence of disease. He has a a new right neck lesion with the prior radiation field (new primary vs. Dermal met?). I would suggest biopsy and repeating CT scans. We can consider further management (resection vs. ICI) once we get CT scans and biopsy results.. I reviewed his prior medical notes, results of all lab and radiology reports. In addition, I spent time today preparing to see the patient by reviewing his medical records, performing a history and physical examination, and ordered repeat imaging and lab work for his next visit. I also spent time discussing his case with the surgical providers in our multi-disciplinary clinic. In addition, I disclosed my role as GLOBAL MARKETING INTERN at [employer] and explained that this position could be perceived as a conflict of interest. I did ask him if he would be more comfortable seeing a different provide and would be happy to expedite transition of his care to one of my colleagues. He understands the situation and has agreed to maintain me as his oncology provider at [facility] and [facility]. 2. History of aortic valve replacement with no OR or other history of angina. 3. History of Lyme disease, without complications. 4. History of ocular disorders, including cataracts, macular degeneration, and corneal abrasion. I personally spent a total of 26 minutes on care for this patient on the date of the encounter. This includes wspt-rr-kjgu time during the visit as well as non xgfd-rx-zuks time spent on chart review, documentation, and care coordination. I have maintained a long-term (or longitudinal) relationship with the patient, overseeing the care of their Squamous Cell Carcinoma. This has significantly influenced my decision-making and treatment plans during today s encounter. Assessment & Plan (07/31/2023 11:09 AM EST): 1. Mr. 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 He initially presented to us in August of 2020 with a new right neck mass. FNA of his neck node was suspicious but not diagnostic for SCC. He was seen by Dr. Umang Vincent who was planning for re-resection of the primary site and right superficial parotidectomy and neck dissection. Although he was eligible for the neoadjuvant cemiplimab study he declined participation and went on to have parotidectomy and neck dissection followed by radiation therapy. He a had local recurrence at the right forehead/preauricular region and biopsy on 11/23/21 showed squamous cell carcinoma with deep PNI. He underwent resection and reconstruction with split thickness skin graft on 12/06/21. He has been followed closely by both ENT and Dermatology services and generally doing well. He had CT scans of the head, neck, and chest on 08/02/2022, which showed some enhancing areas in the prior surgical bed in the right frontotemporal and post-auricular region. A biopsy was obtained on 08/08/2021 and this showed an invasive squamous cell carcinoma with likely LVI in the posterior scalp area. Given the recurrence after surgery and prior radiation, his case was discussed at Tumor Board, and the recommendation was to consider immune checkpoint blockade. Mr. Jeronimo agreed and he started cemiplimab on 09/13/2022 and received four cycles c/b mild but bothersome immune-related arthralgias and hypothyroidism. He was started on Indocin, which did help with the arthralgia and he was referred to [facility] Rheumatology; we held further ICI. We have been following him since and he feels well. He had repeat CT scans of the neck and chest on 07/20/2023 and these showed now evidence of disease. Plan to repeat CT scans and blood work in 3 months. I reviewed his prior medical notes, results of all lab and radiology reports. In addition, I spent time today preparing to see the patient by reviewing his medical records, performing a history and physical examination, and ordered repeat imaging and lab work for his next visit. I also spent time discussing his case with the surgical providers in our multi-disciplinary clinic. In addition, I disclosed my role as GLOBAL MARKETING INTERN at [employer] and explained that this position could be perceived as a conflict of interest. I did ask him if he would be more comfortable seeing a different provide and would be happy to expedite transition of his care to one of my colleagues. He understands the situation and has agreed to maintain me as his oncology provider at [facility] and [facility]. 2. History of aortic valve replacement with no OR or other history of angina. 3. History of Lyme disease, without complications. 4. History of ocular disorders, including cataracts, macular degeneration, and corneal abrasion. I personally spent a total of 30 minutes on care for this patient on the date of the encounter. This includes piuo-os-uwhk time during the visit as well as non clwq-fh-yfmb time spent on chart review, documentation, and care coordination. Assessment & Plan (03/27/2023 11:51 AM EDT): 1. Mr. 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 He initially presented to us in August of 2020 with a new right neck mass. FNA of his neck node was suspicious but not diagnostic for SCC. He was seen by Dr. Umang Vincent who was planning for re-resection of the primary site and right superficial parotidectomy and neck dissection. Although he was eligible for the neoadjuvant cemiplimab study he declined participation and went on to have parotidectomy and neck dissection followed by radiation therapy. He a had local recurrence at the right forehead/preauricular region and biopsy on 11/23/21 showed squamous cell carcinoma with deep PNI. He underwent resection and reconstruction with split thickness skin graft on 12/06/21. He has been followed closely by both ENT and Dermatology services and generally doing well. He had CT scans of the head, neck, and chest on 08/02/2022, which showed some enhancing areas in the prior surgical bed in the right frontotemporal and post-auricular region. A biopsy was obtained on 08/08/2021 and this showed an invasive squamous cell carcinoma with likely LVI in the posterior scalp area. Given the recurrence after surgery and prior radiation, his case was discussed at Tumor Board, and the recommendation was to consider immune checkpoint blockade. Mr. Jeronimo agreed and he started cemiplimab on 09/13/2022 and received four cycles c/b mild but bothersome immune-related arthralgias and hypothyroidism. He was started on Indocin, which did help with the arthralgia and he was referred to [facility] Rheumatology; we held further ICI. We have been following him since and he feels well. He had repeat CT scans of the neck and chest on 03/20/2023 and these showed now evidence of disease. Plan to repeat CT scans and blood work in 3 months. I reviewed his prior medical notes, results of all lab and radiology reports. In addition, I spent time today preparing to see the patient by reviewing his medical records, performing a history and physical examination, and ordered repeat imaging and lab work for his next visit. I also spent time discussing his case with the surgical providers in our multi-disciplinary clinic. In addition, I disclosed my role as GLOBAL MARKETING INTERN at [employer] and explained that this position could be perceived as a conflict of interest. I did ask him if he would be more comfortable seeing a different provide and would be happy to expedite transition of his care to one of my colleagues. He understands the situation and has agreed to maintain me as his oncology provider at [facility] and [facility]. 2. History of aortic valve replacement with no OR or other history of angina. 3. History of Lyme disease, without complications. 4. History of ocular disorders, including cataracts, macular degeneration, and corneal abrasion. I personally spent a total of 40 minutes on care for this patient on the date of the encounter. This includes isjd-qf-yjdj time during the visit as well as non hejo-pc-ooie time spent on chart review, documentation, and care coordination. Assessment & Plan (12/12/2022 1:05 PM EDT): 1. Mr. 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 He initially presented to us in August of 2020 with a new right neck mass. FNA of his neck node was suspicious but not diagnostic for SCC. He was seen by Dr. Umang Vincent who was planning for re-resection of the primary site and right superficial parotidectomy and neck dissection. Although he was eligible for the neoadjuvant cemiplimab study he declined participation and went on to have parotidectomy and neck dissection followed by radiation therapy. He a had local recurrence at the right forehead/preauricular region and biopsy on 11/23/21 showed squamous cell carcinoma with deep PNI. He underwent resection and reconstruction with split thickness skin graft on 12/06/21. He has been followed closely by both ENT and Dermatology services and generally doing well. He had CT scans of the head, neck, and chest on 08/02/2022, which showed some enhancing areas in the prior surgical bed in the right frontotemporal and post-auricular region. A biopsy was obtained on 08/08/2022 and this showed an invasive squamous cell carcinoma with likely LVI in the posterior scalp area. Given the recurrence after surgery and prior radiation, his case was discussed at Tumor Board, and the recommendation was to consider immune checkpoint blockade. Mr. Jeronimo was in agreement and he started cemiplimab on 09/13/2022 and has now received four cycles c/b mild but bothersome immune-related arthralgias and hypothyroidism. He was started on Indocin, which did help with the arthralgia and he was referred to [facility] Rheumatology; we have also held ICI. He had repeat CT scans of the neck and chest on 12/06/2022 and these showed decreased thickening in the scalp and no evidence of disease elsewhere, although there are small (5-6 mm) pulmonary nodules that merit follow up. Labs today were sent. Plan to review his films at Tumor Board but I would suggest holding immunotherapy for now given the extent of the arthralgias. I reviewed his prior medical notes, results of all lab and radiology reports. In addition, I spent time today preparing to see the patient by reviewing his medical records, performing a history and physical examination, and ordered repeat imaging and lab work for his next visit. I also spent time discussing his case with the surgical providers in our multi-disciplinary clinic. In addition, I disclosed my role as [employer]LO[employer]ETING INTERN at [employer] and explained that this position could be perceived as a conflict of interest. I did ask him if he would be more comfortable seeing a different provide and would be happy to expedite transition of his care to one of my colleagues. He understands the situation and has agreed to maintain me as his oncology provider at [facility] and [facility]. 2. History of aortic valve replacement with no OR or other history of angina. 3. History of Lyme disease, without complications. 4. History of ocular disorders, including cataracts, macular degeneration, and corneal abrasion. I personally spent a total of 45 minutes on care for this patient on the date of the encounter. This includes ytfz-pr-tgfr time during the visit as well as non eieq-ot-rpur time spent on chart review, documentation, and care coordination. Assessment & Plan (11/17/2022 12:49 PM EDT): Mr. 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 He initially presented to in August of 2020 with a new right neck mass. FNA of his neck node was suspicious but not diagnostic for SCC. He was seen by Dr. Umang Vincent who was planning for re- resection of the primary site and right superficial parotidectomy and neck dissection. Although he was eligible for the neoadjuvant cemiplimab study he declined participation and went on to have parotidectomy and neck dissection followed by radiation therapy. He a had local recurrence at the right forehead/preauricular region and biopsy on 11/23/21 showed squamous cell carcinoma with deep PNI. He underwent resection and reconstruction with split thickness skin graft on 12/06/21. He has been followed closely by both ENT and Dermatology services. He had CT scans of the head, neck, and chest on 08/02/2022, which showed some enhancing areas in the prior surgical bed in the right frontotemporal and post-auricular region. A biopsy was obtained on 08/08/2021 and this showed an invasive squamous cell carcinoma with likely LVI in the posterior scalp area. Given the recurrence after surgery and prior radiation, his case was discussed at Tumor Board, and the recommendation was to consider immune checkpoint blockade. He previously reviewed this plan and signed consent for cemiplimab with Dr. Ritter. S/p C1 cemi 09/13/22. He presents today for C4 cemiplimab. C3 was c/b significant increase in joint pain; now moderate 7/10 at worst, 2/10 at best. Mainly in the R hip, b/l knees, and shoulders. Taking 1g APAP and 600mg ibu BID with some relief. Sx tend to be worse in the morning. Despite the increase in joint pain he still remains active although sleep has not been great. - labs OK for treatment, proceed with C4 cemiplimab 350mg IV (q3w) - OK for 1g APAP every 8 hours and 600mg ibuprofen every 6 hours - will send rx for diclofenac - RN to call Sunday to check in on symptoms. If no better we will escalate treatment for joint pain. He is in agreement with this plan. - mild anemia --> will add iron studies to assess for iron deficiency or AOCD - restaging scans q3 months/q4 cycles. Scheduled for 12/06, will f/u with Dr. Ritter and Omar hodges Assessment & Plan (11/06/2022 12:16 PM EDT): Mr. 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 He initially presented to in August of 2020 with a new right neck mass. FNA of his neck node was suspicious but not diagnostic for SCC. He was seen by Dr. Umang Vincent who was planning for re- resection of the primary site and right superficial parotidectomy and neck dissection. Although he was eligible for the neoadjuvant cemiplimab study he declined participation and went on to have parotidectomy and neck dissection followed by radiation therapy. He a had local recurrence at the right forehead/preauricular region and biopsy on 11/23/21 showed squamous cell carcinoma with deep PNI. He underwent resection and reconstruction with split thickness skin graft on 12/06/21. He has been followed closely by both ENT and Dermatology services. He had CT scans of the head, neck, and chest on 08/02/2022, which showed some enhancing areas in the prior surgical bed in the right frontotemporal and post-auricular region. A biopsy was obtained on 08/08/2021 and this showed an invasive squamous cell carcinoma with likely LVI in the posterior scalp area. Given the recurrence after surgery and prior radiation, his case was discussed at Tumor Board, and the recommendation was to consider immune checkpoint blockade. He previously reviewed this plan and signed consent for cemiplimab with Dr. Ritter. S/p C1 cemi 09/13/22. He presents today for C3 cemiplimab, feeling well overall. Some mild-mod scalp pain and HAs after treatment ~24h. Improved with APAP. He feels the scalp lesions are flatter which is encouraging. No apparent irAEs. - labs OK for treatment, proceed with C3 cemiplimab 350mg IV (q3w) - OK for 1g APAP every 8 hours as needed for HAs +/- joint pain - labs to obtained with each infusion: CBC/d, CMP, LDH. TSH & FT4 q6-12 weeks or sooner if clinically indicated. Remainder of labs to do not need to be repeated unless clinically indicated. - CTM thyroid function qvisit and start replacement if necessary - restaging scans q3 months/q4 cycles. Scheduled for 12/06. Assessment & Plan (10/04/2022 3:16 PM EDT): Mr. 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 He initially presented to in August of 2020 with a new right neck mass. FNA of his neck node was suspicious but not diagnostic for SCC. He was seen by Dr. Umang Vincent who was planning for re- resection of the primary site and right superficial parotidectomy and neck dissection. Although he was eligible for the neoadjuvant cemiplimab study he declined participation and went on to have parotidectomy and neck dissection followed by radiation therapy. He a had local recurrence at the right forehead/preauricular region and biopsy on 11/23/21 showed squamous cell carcinoma with deep PNI. He underwent resection and reconstruction with split thickness skin graft on 12/06/21. He has been followed closely by both ENT and Dermatology services. He had CT scans of the head, neck, and chest on 08/02/2022, which showed some enhancing areas in the prior surgical bed in the right frontotemporal and post-auricular region. A biopsy was obtained on 08/08/2021 and this showed an invasive squamous cell carcinoma with likely LVI in the posterior scalp area. Given the recurrence after surgery and prior radiation, his case was discussed at Tumor Board, and the recommendation was to consider immune checkpoint blockade. He previously reviewed this plan and signed consent for cemiplimab with Dr. Ritter. S/p C1 cemi 09/13/22. He presents today for C2 cemiplimab, feeling well overall. Some mild- mod scalp pain and HAs after first cycle for ~24h. Improved with APAP. He feels the scalp lesions are flatter which is encouraging. No apparent irAEs. - labs OK for treatment, proceed with C2 cemiplimab 350mg IV (q3w) - OK for 1g APAP every 8 hours as needed for HAs +/- joint pain - labs to obtained with each infusion: CBC/d, CMP, LDH. TSH & FT4 q6-12 weeks or sooner if clinically indicated. Remainder of labs to do not need to be repeated unless clinically indicated. - CTM thyroid function qvisit and start replacement if necessary - restaging scans q3 months/q4 cycles, will order and arrange at next visit Assessment & Plan (09/19/2022 10:21 AM EDT): Mr. 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 He initially presented to in August of 2020 with a new right neck mass. FNA of his neck node was suspicious but not diagnostic for SCC. He was seen by Dr. Umang Vincent who was planning for re- resection of the primary site and right superficial parotidectomy and neck dissection. Although he was eligible for the neoadjuvant cemiplimab study he declined participation and went on to have parotidectomy and neck dissection followed by radiation therapy. He a had local recurrence at the right forehead/preauricular region and biopsy on 11/23/21 showed squamous cell carcinoma with deep PNI. He underwent resection and reconstruction with split thickness skin graft on 12/06/21. He has been followed closely by both ENT and Dermatology services. He had CT scans of the head, neck, and chest on 08/02/2022, which showed some enhancing areas in the prior surgical bed in the right frontotemporal and post-auricular region. A biopsy was obtained on 08/08/2021 and this showed an invasive squamous cell carcinoma with likely LVI in the posterior scalp area. Given the recurrence after surgery and prior radiation, his case was discussed at Tumor Board, and the recommendation was to consider immune checkpoint blockade. He previously reviewed this plan and signed consent for cemiplimab with Dr. Ritter. He presents today for C1 cemiplimab, feeling well overall. We met virtually on Sunday to review in detail. Today we again briefly reviewed the dosing, administration and expectations/logistics of cemiplimab for SCC. He was counseled on the importance of open and ongoing communication regarding toxicity. He had a formal nursing teach today and received all written information including phone numbers to call during weekends, after hours, and holidays. - proceed with C1 cemiplimab 350mg IV (q3w) - pre-treatment labs obtained today: CBC/d, CMP, LDH, TSH, FT4, amylase, lipase, troponin, HBV serologies (HBV core and surface antibodies, HBV surface antigen) and TB serologies (either quantiferon gold or T-spot), HCV - labs to obtained with each infusion: CBC/d, CMP, LDH. TSH & FT4 q6-12 weeks or sooner if clinically indicated. Remainder of labs to do not need to be repeated unless clinically indicated. - tsh mildly elevated (7.52) with a normal ft4. Will CTM qvisit and start replacement if necessary. - restaging scans q3 months/q4 cycles, will arrange. Assessment & Plan (09/12/2022 4:36 PM EDT): Mr. 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 He initially presented to in August of 2020 with a new right neck mass. FNA of his neck node was suspicious but not diagnostic for SCC. He was seen by Dr. Umang Vincent who was planning for re- resection of the primary site and right superficial parotidectomy and neck dissection. Although he was eligible for the neoadjuvant cemiplimab study he declined participation and went on to have parotidectomy and neck dissection followed by radiation therapy. He a had local recurrence at the right forehead/preauricular region and biopsy on 11/23/21 showed squamous cell carcinoma with deep PNI. He underwent resection and reconstruction with split thickness skin graft on 12/06/21. He has been followed closely by both ENT and Dermatology services. He had CT scans of the head, neck, and chest on 08/02/2022, which showed some enhancing areas in the prior surgical bed in the right frontotemporal and post-auricular region. A biopsy was obtained on 08/08/2021 and this showed an invasive squamous cell carcinoma with likely LVI in the posterior scalp area. Given the recurrence after surgery and prior radiation, his case was discussed at Tumor Board, and the recommendation was to consider immune checkpoint blockade. He previously reviewed this plan and signed consent for cemiplimab with Dr. Ritter. Today we met virtually in anticipation of beginning treatment with cemiplimab on Wednesday 09/13. The rationale, MOA, risks/benefits, dosing, administration and expectations/logistics of cemiplimab for SCC were reviewed. We discussed side effects, including but not limited to: skin, liver, glands, heart, eyes, lungs, pancreas, kidneys, joints, and GI tract/bowel; as well as management with steroids and effects of long-term and/or high dose steroids. We also discussed the risk of permanent toxicities (ex: endo, worsening MSK) and risk of fatal toxicities (~1%, myocarditis). He was counseled on the importance of open and ongoing communication regarding toxicity. He will have a formal RN teach when here in person and receive all written information including phone numbers to call during weekends, after hours, and holidays. - plan for cemiplimab 350mg IV q3w - pre-treatment labs to be obtained on or prior to D1: CBC/d, CMP, LDH, TSH, FT4, amylase, lipase, troponin, HBV serologies (HBV core and surface antibodies, HBV surface antigen) and TB serologies (either quantiferon gold or T-spot), HCV - labs to obtained with each infusion: CBC/d, CMP, LDH. TSH & FT4 q6-12 weeks or sooner if clinically indicated. Remainder of labs to do not need to be repeated unless clinically indicated. - restaging scans q3 months/q4 cycles, will arrange. Assessment & Plan (09/05/2022 9:48 AM EST): 1. Mr. 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 He initially presented to us in August of 2020 with a new right neck mass. FNA of his neck node was suspicious but not diagnostic for SCC. He was seen by Dr. Umang Vincent who was planning for re-resection of the primary site and right superficial parotidectomy and neck dissection. Although he was eligible for the neoadjuvant cemiplimab study he declined participation and went on to have parotidectomy and neck dissection followed by radiation therapy. He a had local recurrence at the right forehead/preauricular region and biopsy on 11/23/21 showed squamous cell carcinoma with deep PNI. He underwent resection and reconstruction with split thickness skin graft on 12/06/21. He has been followed closely by both ENT and Dermatology services and generally doing well. He had CT scans of the head, neck, and chest on 08/02/2022, which showed some enhancing areas in the prior surgical bed in the right frontotemporal and post-auricular region. A biopsy was obtained on 08/08/2021 and this showed an invasive squamous cell carcinoma with likely LVI in the posterior scalp area. Given the recurrence after surgery and prior radiation, his case was discussed at Tumor Board, and the recommendation was to cosndier immune checkpoint blockade. Mr. Jeronimo was in agreement and I reviewe the indications, risks, including but not limited to fatigue, skin rash, infusion reaction, and immune-related adverse events of any or all organs. He provided written, informed consent and we sent him for pre-treatment blood work and will plan to start immunotherapy with cemiplimab in 1-2 weeks. I reviewed his prior medical notes, results of all lab and radiology reports. In addition, I spent time today preparing to see the patient by reviewing his medical records, performing a history and physical examination, and ordered repeat imaging and lab work for his next visit. I also spent time discussing his case with the surgical providers in our multi-disciplinary clinic. In addition, I disclosed my role as GLOBAL MARKETING INTERN at [employer] and explained that this position could be perceived as a conflict of interest. I did ask him if he would be more comfortable seeing a different provide and would be happy to expedite transition of his care to one of my colleagues. He understands the situation and has agreed to maintain me as his oncology provider at [facility] and [facility] [place]. 2. History of aortic valve replacement with no OR or other history of angina. 3. History of Lyme disease, without complications. 4. History of ocular disorders, including cataracts, macular degeneration, and corneal abrasion. I personally spent a total of 50 minutes on care for this patient on the date of the encounter. This includes spct-qr-ffec time during the visit as well as non qoqn-[id number]-qtwk time spent on chart review, documentation, and care coordination. Assessment & Plan (08/08/2022 11:30 AM EST): 1. Mr. 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 He initially presented to us in August of 2020 with a new right neck mass. FNA of his neck node was suspicious but not diagnostic for SCC. He was seen by Dr. Umang Vincent who was planning for re-resection of the primary site and right superficial parotidectomy and neck dissection. Although he was eligible for the neoadjuvant cemiplimab study he declined participation and went on to have parotidectomy and neck dissection followed by radiation therapy. He a had local recurrence at the right forehead/preauricular region and biopsy on 11/23/21 showed squamous cell carcinoma with deep PNI. He underwent resection and reconstruction with split thickness skin graft on 12/06/21. He has been followed closely by both ENT and Dermatology services and generally doing well. He had CT scans of the head, neck, and chest on 08/02/2022. These show post-surgical changed in the right frontotemporal region with increased enhancement at the superior and inferior margins of the resection bed; there is also an ill-defined enhancement seen at the right post-auricular region. On clinical exam these sites appear to be slightly more prominent and would like to get biopsies; will discuss with Dr. Nelson. There is no cervical lymphadenopathy or disease in the chest. His last Signatera test for circulating tumor DNA in December 2021 was negative; we can send another test today. We will plan to continue with close follow-up and encouraged him to see dermatology on a regular basis. Plan for repeat CT scans in 3 months. I reviewed his prior medical notes, results of all lab and radiology reports. In addition, I spent time today preparing to see the patient by reviewing his medical records, performing a history and physical examination, and ordered repeat imaging and lab work for his next visit. I also spent time discussing his case with the surgical providers in our multi-disciplinary clinic. In addition, I disclosed my role as GLOBAL MARKETING INTERN at [employer] and explained that this position could be perceived as a conflict of interest. I did ask him if he would be more comfortable seeing a different provide and would be happy to expedite transition of his care to one of my colleagues. He understands the situation and has agreed to maintain me as his oncology provider at [facility] and [facility] [place]. 2. History of aortic valve replacement with no OR or other history of angina. 3. History of Lyme disease, without complications. 4. History of ocular disorders, including cataracts, macular degeneration, and corneal abrasion. I personally spent a total of 35 minutes on care for this patient on the date of the encounter. This includes ysjc-[id number]-[id number] time during the visit as well as non hytn-ji-gind time spent on chart review, documentation, and care coordination. Assessment & Plan (05/02/2022 10:04 AM EDT): 1. Mr. 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 FNA of his neck node was suspicious but not diagnostic for SCC. He was seen by Dr. Umang Vincent who was planning for re-resection of the primary site and right superficial parotidectomy and neck dissection. Although he was eligible for the neoadjuvant cemiplimab study he declined participation and went on to have parotidectomy and neck dissection followed by radiation therapy. He a had local recurrence at the right forehead/preauricular region and biopsy on 11/23/21 showed squamous cell carcinoma with deep PNI. He underwent reconstruction with split thickness skin graft on 12/06/21. He has been followed closely by both ENT and Dermatology services and generally doing well. He was referred back to the [facility] for re-evaluation and monitoring. We also performed a CT scan of the neck, chest, abdomen and pelvis today, which look good on my initial review but final reports are pending. We will plan to continue with close follow-up and encouraged him to see dermatology on a regular basis. Plan for repeat CT scans in 3 months. We also ruthann a Signatera test for circulating tumor DNA today. I reviewed his prior medical notes, results of all lab and radiology reports. In addition, I spent time today preparing to see the patient by reviewing his medical records, performing a history and physical examination, and ordered repeat imaging and lab work for his next visit. I also spent time discussing his case with the surgical providers in our multi-disciplinary clinic. In addition, I disclosed my role as GLOBAL MARKETING INTERN at [employer] and explained that this position could be perceived as a conflict of interest. I did ask him if he would be more comfortable seeing a different provide and would be happy to expedite transition of his care to one of my colleagues. He understands the situation and has agreed to maintain me as his oncology provider at [facility] and [facility]. 2. History of aortic valve replacement with no OR or other history of angina. 3. History of Lyme disease, without complications. 4. History of ocular disorders, including cataracts, macular degeneration, and corneal abrasion. I personally spent a total of 35 minutes on care for this patient on the date of the encounter. This includes bizy-oq-osnl time during the visit as well as non llsi-op-aqam time spent on chart review, documentation, and care coordination. Assessment & Plan (01/03/2022 1:44 PM EDT): 1. Mr. 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 FNA of his neck node was suspicious but not diagnostic for SCC. He was seen by Dr. Umang Vincent who was planning for re-resection of the primary site and right superficial parotidectomy and neck dissection. Although he was eligible for the neoadjuvant cemiplimab study he decned participation and went on to have parotidectomy and neck dissection followed by radiation therapy. He recently had local recurrence at the right forehead/preauricular region and this was excised on 11/23/21. Pathology shows squamous cell carcinoma with deep PNI. He is now s/p reconstruction with split thickness skin graft on 12/06/21. He was referred back to the [facility] for re-evaluation and monitoring. The area likely represent a local field defect. I would like to get systemic imaging and SIgnatera testing, which could help drive further systemic therapy in the absence of measurable disease. I also think it may be worth considering topical therapy with either Aldara or 5-FU and will present his case at Tumor Board this week. In any event he requires close observation. I reviewed his prior medical notes, results of all lab and radiology reports. In addition, I spent time today preparing to see the patient by reviewing his medical records, performing a history and physical examination, and ordered repeat imaging and lab work for his next visit. I also spent time discussing his case with the surgical providers in our multi-disciplinary clinic. In addition, I disclosed my role as GLOBAL MARKETING INTERN at [employer] and explained that this position could be perceived as a conflict of interest. I did ask him if he would be more comfortable seeing a different provide and would be happy to expedite transition of his care to one of my colleagues. He understands the situation and has agreed to maintain me as his oncology provider at [facility] and [facility]. 2. History of aortic valve replacement with no OR or other history of angina. 3. History of Lyme disease, without complications. 4. History of ocular disorders, including cataracts, macular degeneration, and corneal abrasion. I personally spent a total of 40 minutes on care for this patient on the date of the encounter. This includes wbbd-dk-rsty time during the visit as well as non boju-fh-qknn time spent on chart review, documentation, and care coordination. Assessment & Plan (08/18/2020 7:42 PM EST): 1. Mr. 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 He had resection of his preauricular SCC with positive deep margins and was going to have radiation but prior to treatment was found to have a new right neck lesion on physical examination. The radiation was cancelled and he did not receive any radiation. An FNA of the neck node was suspicious for squamous cell carcinoma. He was seen by Dr. Umang Vincent who was planning for re-resection of the primary site and right superficial parotidectomy and neck dissection. Mr. Davila was sent to the multi-disciplinary clinic for initial evaluation. He was considered for the neoadjuvant cemiplimab trial and expressed considerable interest in this. We discussed the indications, risks, alternative approaches, need for an additional biopsy for tissue and reviewed the procedures involved. He asked questions and provide written informed consent. He was given a copy of the signed document. We will get EKG and screening blood work today. We will also want to coordinate with DR. Vincent as he will perform the planned surgery after four doses of cemiplimab. 2. History of non-melanoma skin cancer. this is associated with an increased risk of synchronous skin cancer. We, therefore, discussed methods of early detection and prevention, which should include monthly skin and cristopher basin self examination noting any new or changing lesions; regular skin screening by a qualified auto service instructor; and adopting sun avoidance behaviors. The potential increase in melanoma risk for first-degree relatives was also discussed and these measures would be appropriate for them as well. 3. History of cardiac disease, without complications. 4. History of Lyme disease, without complications. 5. History of ocular disorders, including cataracts, macular degeneration, and corneal abrasion. I personally spent a total of 65 minutes on care for this patient on the date of the encounter. This includes wvuv-fw-djdx time during the visit as well as non euvh-pb-facd time spent on chart review, documentation, and care coordination. Assessment & Plan (08/10/2020 12:48 PM EST): 1. Mr. 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 FNA of his neck node was suspicious but not diagnostic for SCC. He was seen by Dr. Umang Vincent who was planning for re-resection of the primary site and right superficial parotidectomy and neck dissection. Mr. Davila was sent to the multi-disciplinary clinic for initial evaluation. We will get a biopsy of the neck node today and I would like to obtain whole body imaging with CT scans of the neck, chest, abdomen and pelvis. While re-resection of the restoration lesion and right modified radical neck lymphadenectomy is technically feasible if tumor is confirmed in the node and there is no evidence of metastatic disease, the rapid recurrence from his initial presentation might suggest benefit for neoadjuvant immunotherapy. He appears to be eligible for the neoadjuvant cemiplimab study, which would allow four doses of cemiplimab prior to planned operative procedure. The patient is interested and I am happy to see him next week at [facility] to obtain informed consent and start treatment, if acceptable to Dr. aCrlson. We would need to confirm surgery can be scheduled within the study window in 3 months. 2. History of aortic valve replacement with no OR or other history of angina. 3. History of Lyme disease, without complications. 4. History of ocular disorders, including cataracts, macular degeneration, and corneal abrasion. 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) from Last 3 Months Family History Medical History Relation Comments Cardiovascular disease Father Cancer Mother Basal cell carcinoma Neg Hx Melanoma Neg Hx Squamous cell carcinoma Neg Hx Relation Status Comments Father Mother Social History Tobacco Use Types Packs/Day Years Used Date Smoking Tobacco: Former Cigarettes Q uit: 09/22/1970 Smokeless Tobacco: Never Tobacco Cessation:Counseling Given: Not Answered Alcohol Use Standard Drinks/Week Comments Not Currently [...] EDT Gender Identity Male Sexual Orientation Straight Last Filed Vital Signs Vital Sign Reading Time Taken Comments Blood Pressure 152/72 08/24/2023 2:15 PM EST Pulse 61 08/24/2023 1:18 PM EST Temperature 36.5 C (97.7 F) 12/05/2022 2:13 PM EDT Respiratory Rate 15 08/24/2023 12:12 PM EST Oxygen Saturation 95% 08/24/2023 2:15 PM EST Inhaled Oxygen Concentration - - Weight 74.4 kg (164 lb) 05/20/2024 10:22 AM EST Height 160 cm (5' 3 ) 05/20/2024 10:22 AM EST Body Mass Index 29.05 05/20/2024 10:22 AM EST Plan of Treatment Upcoming Encounters Date Type Department Care Team (Late st Contact Info) Description 04/17/2025 Procedure Pass [address] [address] 04/17/2025 Procedure Pass [address] [address] 07/06/2025 1:00 PM EST Appointment [address] [address] Philip Ritter MD [address] [place] [address] [email or web address] 07/14/2025 11:30 AM EST Office Visit [facility] [address] [place] [address] Philip Ritter MD [address] [place] [address] [email or web address] Health Maintenance Due Date Last Done Comments DEPRESSION SCREENING 1957 BLOOD PRESSURE 06/06/2023 12/05/2022 ZOSTER VACCINES (2 of 2) 07/04/2023 05/09/2023, 08/30 INFLUENZA VACCINE (#1) 2025 , 03/28/2023, 03/08/2022, Additional history exists COVID-19 VACCINE ( season) 2025 03/28/2023, 03/15/2022, 03/28/2021, Additional history exists CREATININE LEVEL 05/20/2025 05/20/2024, , 01/17/2023, Additional history exists POTASSIUM LEVEL 05/20/2025 05/20/2024, 07/04, 01/17/2023, Additional history exists TSH LEVEL 05/20/2025 05/20/2024, 07/04, 01/17/2023, Additional history exists Adult Td,Tdap Booster 09/27/2027 09/26/2017, 008 PNEUMOCOCCAL VACCINES (50+ years) Completed 09/04/2016, 03/01/2011 RSV VACCINE Completed 05/09/2023 HEPATITIS A VACCINES Aged Out No long er eligible based on patient's age to complete this topic HIB VACCINES Aged Out No longer eligi ble based on patient's age to complete this topic MENINGOCOCCAL VACCINES (ACWY) Aged Out No longer eligible based on patient's age to complete this topic MENINGOCOCCAL VACCINES (B) Aged Out N o longer eligible based on patient's age to complete this topic Medical Devices Implanted Type Area Artillery Officer Device Identifier Shelf Expiration Date Model / Serial / Lot Lens Lens Joseph Leg Bovine Aortic Valve Port Implant 6.6fr Dignity Low Profile Ct Attachable Open Suture Hole - [id number] Implanted:Qty: 1 on 10/13/2022 by Kirk May MD at [facility] 11/29/2026 [id number] / / Procedures Procedure Name Priority Date/Time Associated Diagnosis Comments THYROID STIMULATING HORMONE (TSH) Routine 05/20/2024 10:41 AM EST Squamous cell carcinoma of preauricular region COMPREHENSIVE METABOLIC PANEL (CMP) Routine 05/20/2024 10:41 AM EST Squamous cell carcinoma of preauricular region from Last 3 Months or Most Recently Relevant to Health Maintenance Results * Comprehensive metabolic panel (05/20/2024 10:41 AM EST) SODIUM 142 135 - 145 mmol/L [facility] POTASSIUM 4.4 3.4 - 5.0 mmol/L [facility] CHLORIDE 105 98 - 108 mmol/L [facility] CO2 27 23 - 32 mmol/L [facility] BUN 20 8 - 25 mg/dL [facility] CREATININE 1.12 0.60 - 1.30 mg/dL [facility] GLUCOSE 102 70 - 110 mg/dL [facility] ALBUMIN 4.5 3.3 - 5.0 g/dL [facility] TOTAL PROTEIN 7.0 6.0 - 8.3 g/dL [facility] CALCIUM 9.5 8.5 - 10.5 mg/dL [facility] ALKALINE PHOSPHATASE 48 45 - 115 U/L [facility] TOTAL BILIRUBIN 0.6 0.0 - 1.0 mg/dL [facility] AST 19 10 - 40 U/L [facility] ALT 11 10 - 55 U/L [facility] GLOBULIN 2.5 1.9 - 4.1 g/dL [facility] EGFR 67 >59 mL/min/1. 73m2 [facility] Comment:Estimated glomerular filtration rate calculated using the CKD-EPI refit equation. ANION GAP 10 3 - 17 mmol/L [facility] 05/20/2024 10:4 1 AM EST 05/20/2024 12:02 PM EST Philip Ritter MD LAB BLOOD BKR ORDERABLES Fin al Result Performing Organization Address City/[facility] Co de Phone Number [address] [address] * TSH (05/20/2024 10:41 AM EST) TSH 1.75 0.40 - 5.00 uIU/mL [facility] 05/20/2024 10:4 1 AM EST 05/20/2024 12:03 PM EST Philip Ritter MD LAB BLOOD BKR ORDERABLES Fin al Result Performing Organization Address City/[facility] Co de Phone Number [address] [address] from Last 3 Months or Most Recently Relevant to Health Maintenance Insurance MEDICARE PART A & B [facility] PPO MEDICARE PART A & B [facility] PPO MEDICARE [facility] A & B [facility] PPO MEDICARE [facility] A & B [facility] OUT OF STATE PPO MEDICARE PART A & B [facility] PPO MEDICARE PART A & B [facility] PPO MEDICARE PART A & B Member Subscriber Plan / Payer (Ef fective 2009-Present) Name:Michael Jeronimo Member ID:[id number] Relation to Subscriber:Self Name:Michael Jeronimo Subscriber ID:[id number] Payer ID:[id number] Group ID:Not on file Type:Medicare Address: [employer] [facility].[address] [address] [facility] PPO MEDICARE PART A & B [facility] STATE PPO MEDICARE PART A & B [facility] PPO Advance Directives For more information, please contact: [phone] (9AM - 5PM [facility], Sunday-Sunday) Documents on File Type Date Recorded Patient Range Rider Expl anation Healthcare Proxy 10/04/2020 1:38 PM * Full Code (Latest Code Status on File) Date Activated Date Inactivated Comments 09/30/2020 5:33 AM Question Answer Comments Code Status Confirmed With: Other (specify below ) Code Discussion Comments: Handoff Care Teams Nozzleman Relationship Specialty Start Date End Date Bryanna Zelaya MD [address] [place], [place] PCP - General Internal Medicine 11/15/15 Philip Ritter MD [address] [place], [place] [email or web address] Primary Oncologist Surgical Oncology 09/05/22 Alexandra Carpenter, RN [address] [place] [phone] Primary Infusion Nurse 09/07/22 Lisa Xiong RN [address] [place] [phone] [email or web address] Associate Infusion Nurse 09/14/22 Additional Source Comments The information contained in this document represents components of the legal health record. It is not the complete legal health record.[facility]
--- OUTSIDE RECORDS SUMMARY | 2025-06-17 11:59 | XMS_ITS | Encounter Summary ---
Author Organization [facility] Address [address] [place] [address] Phone Care Team Providers Care Director Medical Economics Name Role Phone Byranna Zelaya MD Primary Care Provider [phone] Philip Ritter MD Unavailable [phone] Alexandra Carpenter RN Unavailable [email or web address] Lisa Xiong RN Unavailable [email or web address] Encounter Details Date Type Department Care Team (Late st Contact Info) Description 08/10/2020 Ancillary Orders [facility] and [facility] Head and Neck Cancer Program [address] [place] [address] Marquis Nelson MD [address] [place] [address] María [email or web address] Neck mass Social History Tobacco Use Types Packs/Day Years [...] st Contact Info) Description 04/17/2025 Procedure Pass [facility], Ct Scan - [address] [address] 04/17/2025 Procedure Pass [facility], [address] [address] 07/06/2025 1:00 PM EST Appointment [facility], [address] [address] Philip Ritter MD [address] [place] [address] [email or web address] 07/14/2025 11:30 AM EST Office Visit [facility] [address] [place] [address] Philip Ritter MD [address] [place] [address] [email or web address] documented as of this encounter Results * US Soft Tissues of Head and Neck (Non-Thyroid) (08/10/2020 1:31 PM EST) Anatomical Region Laterality Modality Neck, Head Ultrasound 08/10/2020 2:33 PM EST Impressions 08/10/2020 2:35 PM EST Fine-needle aspiration of a predominantly cystic mass in the right external jugular chain inferior to the right parotid tail. Narrative 08/10/2020 2:35 PM EST INDICATION: FDG avid mass inferior to the right parotid tail TECHNIQUE: US SOFT TISSUES OF HEAD AND NECK (NON-THYROID), US NECK MASS ASPIRATION/FNA COMPARISON: CT neck August 10, 2020 FINDINGS: Inferior to the right parotid tail superficial to the sternocleidomastoid muscle in the right external jugular chain, there is a 1.7 x 1.5 x 2.3 cm probably cystic mass with internal septations. No definite internal vascularity is appreciated. This was targeted for fine-needle aspiration. PROCEDURE NOTE: Following informed consent (risks of infection, bleeding ), the patient was prepped and draped in the usual sterile fashion. Using sonographic guidance, approximately 10 mL of 1% lidocaine as local anesthetic, 5 25-gauge needle passes were made into the dominant cystic mass along the right external jugular chain. Samples were submitted on slides and rinse forms for cytopathology . No postprocedure hematoma was identified. The patient tolerated the procedure. No immediate complications were encountered.: Procedure Note Laurel Lambert MD - 08/10/2020 INDICATION: FDG avid mass inferior to the right parotid tail TECHNIQUE: US SOFT TISSUES OF HEAD AND NECK (NON-THYROID), US NECK MASSASPIRATION/FNA COMPARISON: CT neck August 10, 2020 FINDINGS: Inferior to the right parotid tail superficial to the sternocleidomastoidmuscle in the right external jugular chain, there is a 1.7 x 1.5 x 2.3 cmprobably cystic mass with internal septations. No definite internalvascularity is appreciated. This was targeted for fine-needleaspiration. PROCEDURE NOTE: Following informed consent (risks of infection, bleeding ), the patientwas prepped and draped in the usual sterile fashion. Using sonographicguidance, approximately 10 mL of 1% lidocaine as local anesthetic, 525-gauge needle passes were made into the dominant cystic mass along theright external jugular chain. Samples were submitted on slides and rinseforms for cytopathology . No postprocedure hematoma was identified. Thepatient tolerated the procedure. No immediate complications wereencountered.: IMPRESSION: Fine-needle aspiration of a predominantly cystic mass in the rightexternal jugular chain inferior to the right parotid tail. us Marquis Nelson MD IMG US HEAD/NECK NON THYROID Final Result documented in this encounter Visit Diagnoses Diagnosis Neck mass Swelling, mass, or lump in head and neck Neck mass Swelling, mass, or lump in head and neck documented in this encounter Care Teams Director Medical Economics Relationship Specialty Start Date End Date Bryanna Zelaya MD [address] [place], [place] PCP - General Internal Medicine 11/15/15 Philip Ritter MD [address] [place] [email or web address] Primary Oncologist Surgical Oncology 09/05/22 Alexandra Carpenter, RN [address] [place] [phone] [email or web address] Primary Infusion Nurse 09/07/22 Lisa Xiong, STEPHEN [address] [place] [address] [email or web address] Associate Infusion Nurse 09/14/22 documented as of this encounter Additional Source Comments The information contained in this document represents components of the legal health record. It is not the complete legal health record.[facility]
--- OUTSIDE RECORDS SUMMARY | 2025-06-17 11:59 | XMS_ITS | Encounter Summary ---
Author Organization [facility] Address [address] [place] [address] Phone Care Team Providers Care Environmental Compliance Technician Name Role Phone Bryanna Zelaya MD Primary Care Provider [phone] Philip Ritter MD Unavailable [phone] Alexandra Carpenter RN Unavailable [email or web address] Lisa Xiong RN Unavailable [email or web address] Encounter Details Date Type Department Care Team (Late st Contact Info) Description 08/10/2020 Procedure Pass [facility] - CT Main [address] [address] Social History Tobacco Use Types Packs/Day Years [...] st Contact Info) Description 04/17/2025 Procedure Pass [address] [address] 04/17/2025 Procedure Pass [address] [address] 07/06/2025 1:00 PM EST Appointment [address] [place] [address] Philip Ritter MD [address] [place] [address] [address] [place] [address] [email or web address] 07/14/2025 11:30 AM EST Office Visit [facility] Head [facility] Cancer [facility] [address] [place] [address] Philip Ritter MD [address] [place] [address] [address] [place] [address] [email or web address] documented as of this encounter Visit Diagnoses Not on filedocumented in this encounter Care Teams Environmental Compliance Technician Relationship Specialty Start Date End Date Bryanna Zelaya MD [address] [place], [place] PCP - General Internal Medicine 11/15/15 Philip Ritter MD [address] [place] [address] [email or web address] Primary Oncologist Surgical Oncology 09/05/22 Alexandra Carpenter, RN [address] [place] [phone] Primary Infusion Nurse 09/07/22 Lisa Xiong RN [address] [place] [phone] [email or web address] Associate Infusion Nurse 09/14/22 documented as of this encounter Additional Source Comments The information contained in this document represents components of the legal health record. It is not the complete legal health record.[facility]
--- OUTSIDE RECORDS SUMMARY | 2025-06-17 11:59 | XMS_ITS | Encounter Summary ---
Author Organization [facility] Address [address] [place] [address] Phone Care Team Providers Care Sports Book Writer Name Role Phone Bryanna Zelaya MD Primary Care Provider [phone] Philip Ritter MD Unavailable [phone] Alexandra Carpenter RN Unavailable [email or web address] Lisa Xiong RN Unavailable [email or web address] Encounter Details Date Type Department Care Team (Late st Contact Info) Description 07/25/2021 Procedure Pass [facility] - CT Main [address] [address] Social History Tobacco Use Types Packs/Day Years [...] st Contact Info) Description 04/17/2025 Procedure Pass [address] [address] 04/17/2025 Procedure Pass [address] [address] 07/06/2025 1:00 PM EST Appointment [facility], Ct Scan - [facility] [address] [place] [address] Philip Ritter MD [address] [place] [address] [address] [place] [address] [email or web address] 07/14/2025 11:30 AM EST Office Visit [facility] [address] [place] [address] Philip Ritter MD [address] [place] [address] [address] [place] [address] VANESSA@[email or web address] documented as of this encounter Visit Diagnoses Not on filedocumented in this encounter Care Teams Sports Book Writer Relationship Specialty Start Date End Date Bryanna Zelaya MD [address] [place] [address] PCP - General Internal Medicine 11/15/15 Philip Ritter MD [address] [place] [address] [email or web address] Primary Oncologist Surgical Oncology 09/05/22 Alexandra Carpenter, RN [address] [place] [phone] [email or web address] Primary Infusion Nurse 09/07/22 Lisa Xiong RN [address] [place] [phone] [email or web address] Associate Infusion Nurse 09/14/22 documented as of this encounter Additional Source Comments The information contained in this document represents components of the legal health record. It is not the complete legal health record.[facility]
--- OUTSIDE RECORDS SUMMARY | 2025-06-17 11:59 | XMS_ITS | Encounter Summary ---
Author Organization [facility] Address [address] [place] [address] Phone Care Team Providers Care Council Member Name Role Phone Bryanna Zelaya MD Primary Care Provider [phone] Philip Ritter MD Unavailable [phone] Alexandra Carpenter RN Unavailable [email or web address] Lisa Xiong RN Unavailable [email or web address] Encounter Details Date Type Department Care Team (Late st Contact Info) Description 01/29/2024 Procedure Pass [facility], Ct Scan - [address] [id number] Social History Tobacco Use Types Packs/Day Years [...] st Contact Info) Description 04/17/2025 Procedure Pass [address] [address] 04/17/2025 Procedure Pass [address] [address] 07/06/2025 1:00 PM EST Appointment [address] [address] Philip Ritter MD [address] [place] [address] [email or web address] 07/14/2025 11:30 AM EST Office [facility] [address] [place] [address] Philip Ritter MD [address] [place] [address] [email or web address] documented as of this encounter Visit Diagnoses Not on filedocumented in this encounter Care Teams Council Member Relationship Specialty Start Date End Date Bryanna Zelaya MD [address] [place] [phone] PCP - General Internal Medicine 11/15/15 Philip Ritter MD [address] [place] [address] [email or web address] Primary Oncologist Surgical Oncology 09/05/22 Alexandra Carpenter, RN [address] [place] [phone] [email or web address] Primary Infusion Nurse 09/07/22 Lisa Xiong RN [address] [place] [address] [email or web address] Associate Infusion Nurse 09/14/22 documented as of this encounter Additional Source Comments The information contained in this document represents components of the legal health record. It is not the complete legal health record.[facility]
--- OUTSIDE RECORDS SUMMARY | 2025-06-17 11:59 | XMS_ITS ---
Author Name [facility] Organization Unknown Care Team Organization Name Specialty Phone Email Start Date End Da te [facility] ACO 02/18/2025 [facility] Joe Huff Primary Care 03/08/202302/17 [facility] Bryanna Zelaya Primary Care 05/09/2022
--- OUTSIDE RECORDS SUMMARY | 2025-06-17 11:59 | XMS_ITS | Encounter Summary ---
Author Organization [facility] Address [address] [place] [address] Care Team Providers Care Records Custodian Name Role Phone Bryanna Zelaya MD Primary Care Provider [phone] Reason for Referral * Consultation (Routine) - Closed Specialty Diagnoses / Procedures Referred By Dillon coon Referred To Contact General Surgery Diagnoses Left inguinal hernia Violeta Majano PA [address] [place] [address] Phone: tel: fax: General Surgery [address] [place] [address] Phone: tel: fax: Referral ID Status Reason Start Date Expiration Date V isits Requested Visits Authorized [id number] Closed Specialty Services Required 05/15/2025 05/15/2026 1 1 Encounter Details Date Type Department Care Team (Late st Contact Info) Description 05/15/2025 Results Follow-Up Adult Medicine [address] [phone] Violeta Majano PA [address] [place], [place] Social History Tobacco Use Types Packs/Day Years [...] Record ed Within the last 3 months, ho w many times did you visit the emergency [...] 1:00 PM EST Office Visit Adult Medicine [address] [phone] Bryanna Zelaya MD [address] [place] [address] 01/25/2026 11:00 AM EDT Ancillary Procedure [facility] [address] [facility] [address] [place] [address] Scheduled Referrals Name Type Priority Associated Diagnoses Order Schedule Ambulatory referral to General Surgery Outpatient Referral Routine Left inguinal hernia 1 Occurrences starting 05/15/2025 until 05/15/2026 documented as of this encounter Visit Diagnoses Diagnosis Left inguinal hernia- Primary Inguinal hernia without mention of obstruction or gangrene, unilateral or unspecified, (not specified as recurrent) Encounter for adjustment or management of cardiac device documented in this encounter Additional Health Concerns Assessment Noted Time PHQ-9 Depression Total Score: 0 05/14/20 25 3:32 PM EST documented as of this encounter Care Teams Records Custodian Relationship Specialty Start Date End Date Bryanna Zelaya MD [address] [place] [address] PCP - General 03/15/11 documented as of this encounter
--- OUTSIDE RECORDS SUMMARY | 2025-06-17 11:59 | XMS_ITS | Encounter Summary ---
Author Organization [facility] Address [address] [place] [address] Phone Care Team Providers Care Payment Analyst Name Role Phone Bryanna Zelaya MD Primary Care Provider [phone] Philip Ritter MD Unavailable [phone] Alexandra Carpenter RN Unavailable [email or web address] Lisa Xiong RN Unavailable [email or web address] Encounter Details Date Type Department Care Team (Late st Contact Info) Description 08/10/2020 Procedure Pass [facility] - Ultrasound, [address] [address] Social History Tobacco Use Types Packs/Day Years [...] st Contact Info) Description 04/17/2025 Procedure Pass [address] [address] 04/17/2025 Procedure Pass [address] [address] 07/06/2025 1:00 PM EST Appointment [address] [place] [address] Philip Ritter MD [address] [place] [address] [address] [place] [address] [email or web address] 07/14/2025 11:30 AM EST Office Visit [facility] [address] [place] [address] Philip Ritter MD [address] [place] [phone] [email or web address] documented as of this encounter Visit Diagnoses Not on filedocumented in this encounter Care Teams Payment Analyst Relationship Specialty Start Date End Date Bryanna Zelaya MD [address] [place], [place] PCP - General Internal Medicine 11/15/15 Philip Ritter MD [address] [place] [address] [email or web address] Primary Oncologist Surgical Oncology 09/05/22 Alexandra Carpenter, RN [address] [place] [phone] Primary Infusion Nurse 09/07/22 Lisa Xiong RN [address] [place] [phone] [email or web address] Associate Infusion Nurse 09/14/22 documented as of this encounter Additional Source Comments The information contained in this document represents components of the legal health record. It is not the complete legal health record.[facility]
--- OUTSIDE RECORDS SUMMARY | 2025-06-17 11:59 | XMS_ITS | Encounter Summary ---
Author Organization [facility] Address [address] [place] [address] Phone Care Team Providers Care Tie Buyer Name Role Phone Bryanna Zelaya MD Primary Care Provider [phone] Philip Ritter MD Unavailable [phone] Alexandra Carpenter RN Unavailable [email or web address] Lisa Xiong RN Unavailable [email or web address] Encounter Details Date Type Department Care Team (Late st Contact Info) Description 12/06/2021 [facility] [address] [place] [id number] Social History Tobacco Use Types Packs/Day Years [...] Contact Info) Description 04/17/2025 Procedure Pass [address] [address] 04/17/2025 Procedure Pass [address] [address] 07/06/2025 1:00 PM EST Appointment [facility] - [facility] [address] [place] [address] Philip Ritter MD [address] [place] [address] 7 [place] [address] [email or web address] 07/14/2025 11:30 AM EST Office Visit [facility] [address] [place] [address] Philip Ritter MD [address] [place] [phone] [email or web address] documented as of this encounter Visit Diagnoses Not on filedocumented in this encounter Care Teams Tie Buyer Relationship Specialty Start Date End Date Bryanna Zelaya MD [address] [place] [address] PCP - General Internal Medicine 11/15/15 Philip Ritter MD [address] [place] [address] [email or web address] Primary Oncologist Surgical Oncology 09/05/22 Alexandra Carpenter, RN [address] [place] [phone] [email or web address] Primary Infusion Nurse 09/07/22 Lisa Xiong RN [address] [place] [phone] [email or web address] Associate Infusion Nurse 09/14/22 documented as of this encounter Additional Source Comments The information contained in this document represents components of the legal health record. It is not the complete legal health record.[facility]
--- OUTSIDE RECORDS SUMMARY | 2025-06-17 11:59 | XMS_ITS ---
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 I did ask him if he would be more comfortable seeing a different provide and would be happy to expedite transition of his care to one of my colleagues. He understands the situation and has agreed to maintain me as his oncology provider at [facility] and [facility]. 2. History of aortic valve replacement with no AL or other history of angina. 3. 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 I did ask him if he would be more comfortable seeing a different provide and would be happy to expedite transition of his care to one of my colleagues. He understands the situation and has agreed to maintain me as his oncology provider at [facility] and [facility]. 2. History of aortic valve replacement with no AL or other history of angina. 3. History of Lyme disease, without complications. 4. History of ocular disorders, including cataracts, macular degeneration, and corneal abrasion. I personally spent a total of 25 minutes on care for this patient on the date of the encounter. This includes gahu-sd-tcoz time during the visit as well as non lmxz-ys-ijws time spent on chart review, documentation, and care coordination. I have maintained a long-term (or longitudinal) relationship with the patient, overseeing the care of their Squamous Cell Carcinoma. This has significantly influenced my decision-making and treatment plans during today s encounter. Assessment & Plan (01/29/2024 12:08 PM EDT): 1. Mr. 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 I did ask him if he would be more comfortable seeing a different provide and would be happy to expedite transition of his care to one of my colleagues. He understands the situation and has agreed to maintain me as his oncology provider at [facility] and [facility]. 2. History of aortic valve replacement with no AL or other history of angina. 3. History of Lyme disease, without complications. 4. History of ocular disorders, including cataracts, macular degeneration, and corneal abrasion. I personally spent a total of 26 minutes on care for this patient on the date of the encounter. This includes btyp-yr-jlvr time during the visit as well as non zuvt-xr-dbpo time spent on chart review, documentation, and care coordination. I have maintained a long-term (or longitudinal) relationship with the patient, overseeing the care of their Squamous Cell Carcinoma. This has significantly influenced my decision-making and treatment plans during today s encounter. Assessment & Plan (07/31/2023 11:09 AM EST): 1. Mr. 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 I did ask him if he would be more comfortable seeing a different provide and would be happy to expedite transition of his care to one of my colleagues. He understands the situation and has agreed to maintain me as his oncology provider at [facility] and [facility]. 2. History of aortic valve replacement with no AL or other history of angina. 3. History of Lyme disease, without complications. 4. History of ocular disorders, including cataracts, macular degeneration, and corneal abrasion. I personally spent a total of 30 minutes on care for this patient on the date of the encounter. This includes navs-ej-tzum time during the visit as well as non fygw-zs-vlwm time spent on chart review, documentation, and care coordination. Assessment & Plan (03/27/2023 11:51 AM EDT): 1. Mr. 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 I did ask him if he would be more comfortable seeing a different provide and would be happy to expedite transition of his care to one of my colleagues. He understands the situation and has agreed to maintain me as his oncology provider at [facility] and [facility]. 2. History of aortic valve replacement with no AL or other history of angina. 3. History of Lyme disease, without complications. 4. History of ocular disorders, including cataracts, macular degeneration, and corneal abrasion. I personally spent a total of 40 minutes on care for this patient on the date of the encounter. This includes ofej-yk-ymgh time during the visit as well as non uctg-yg-vlmz time spent on chart review, documentation, and care coordination. Assessment & Plan (12/12/2022 1:05 PM EDT): 1. Mr. 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 I did ask him if he would be more comfortable seeing a different provide and would be happy to expedite transition of his care to one of my colleagues. He understands the situation and has agreed to maintain me as his oncology provider at [facility] and [facility]. 2. History of aortic valve replacement with no AL or other history of angina. 3. History of Lyme disease, without complications. 4. History of ocular disorders, including cataracts, macular degeneration, and corneal abrasion. I personally spent a total of 45 minutes on care for this patient on the date of the encounter. This includes snsd-tw-duno time during the visit as well as non pgqn-bg-ddtr time spent on chart review, documentation, and care coordination. Assessment & Plan (11/17/2022 12:49 PM EDT): Mr. 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 Mr. 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 I did ask him if he would be more comfortable seeing a different provide and would be happy to expedite transition of his care to one of my colleagues. He understands the situation and has agreed to maintain me as his oncology provider at [facility] and [facility]. 2. History of aortic valve replacement with no AL or other history of angina. 3. History of Lyme disease, without complications. 4. History of ocular disorders, including cataracts, macular degeneration, and corneal abrasion. I personally spent a total of 50 minutes on care for this patient on the date of the encounter. This includes mjre-kt-dace time during the visit as well as non yzrs-xk-gkmr time spent on chart review, documentation, and care coordination. Assessment & Plan (08/08/2022 11:30 AM EST): 1. Mr. 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 I did ask him if he would be more comfortable seeing a different provide and would be happy to expedite transition of his care to one of my colleagues. He understands the situation and has agreed to maintain me as his oncology provider at [facility] and [facility]. 2. History of aortic valve replacement with no AL or other history of angina. 3. History of Lyme disease, without complications. 4. History of ocular disorders, including cataracts, macular degeneration, and corneal abrasion. I personally spent a total of 35 minutes on care for this patient on the date of the encounter. This includes yldx-sm-hbtn time during the visit as well as non mxka-zu-ztrm time spent on chart review, documentation, and care coordination. Assessment & Plan (05/02/2022 10:04 AM EDT): 1. Mr. 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 He was referred back to the [facility] for re-evaluation and monitoring. We also [...] In addition, I disclosed my role as CLOTH WEIGHER at [employer] and explained that this position could be perceived as a conflict of interest. I did ask him if he would be more comfortable seeing a different provide and would be happy to expedite transition of his care to one of my colleagues. He understands the situation and has agreed to maintain me as his oncology provider at [facility] and [facility]. 2. History of aortic valve replacement with no AL or other history of angina. 3. History of Lyme disease, without complications. 4. History of ocular disorders, including cataracts, macular degeneration, and corneal abrasion. I personally spent a total of 35 minutes on care for this patient on the date of the encounter. This includes fxrh-nx-xlve time during the visit as well as non hxvv-wl-cvvg time spent on chart review, documentation, and care coordination. Assessment & Plan (01/03/2022 1:44 PM EDT): 1. Mr. 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 He was referred back to the [facility] for re-evaluation and monitoring. 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 I did ask him if he would be more comfortable seeing a different provide and would be happy to expedite transition of his care to one of my colleagues. He understands the situation and has agreed to maintain me as his oncology provider at [facility] and [facility]. 2. History of aortic valve replacement with no AL or other history of angina. 3. History of Lyme disease, without complications. 4. History of ocular disorders, including cataracts, macular degeneration, and corneal abrasion. I personally spent a total of 40 minutes on care for this patient on the date of the encounter. This includes ggoe-tp-bvxt time during the visit as well as non btde-jf-vvdz time spent on chart review, documentation, and [...] lesions; regular skin screening by a qualified test analyst; and adopting sun avoidance behaviors. The potential [...] the date of the encounter. This includes opzh-lj-xvqo time during the visit as well as non vfok-ys-puri time spent on chart review, documentation, and care coordination. Assessment & Plan (08/10/2020 12:48 PM EST): 1. Mr. 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 FNA of his neck node was suspicious but not diagnostic for SCC. He was seen by Dr. Umnag Vincent who was planning for re-resection of the primary site and right superficial parotidectomy and neck dissection. Mr. Davila was sent to the multi-disciplinary clinic for initial evaluation. We will get a biopsy of the neck node today and I would like to obtain whole body imaging with CT scans of the neck, chest, abdomen and pelvis. While re-resection of the pentecostal lesion and right modified radical neck lymphadenectomy [...] happy to see him next week at [facility] to obtain informed consent and start treatment, if acceptable to Dr. Carlson. We would need to confirm surgery can be scheduled within the study window in 3 months. 2. History of aortic valve replacement with no AL or other history of angina. 3. History of Lyme disease, without complications. 4. History of ocular disorders, including cataracts, macular degeneration, and corneal abrasion. 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 Past Treatment and Therapy Plans Access and Flush Therapy Plan Plan Name Start Date Discontinue Date Treatment Medications Discontinue Reason Plan Provider ACCESS AND FLUSH ([facility]) 09/13/2022 09/07/2023 No medications scheduled. a. Therapy Complete Latanya Addisno, DORENE TREATMENT PLAN Plan Name Start Date Discontinue Date Treatment Medications Discontinue Reason Plan Provider Cycles CEMIPLIMAB 09/13/2022 03/11/2024 cemiplimab-rwlc IVPB Bag a. Therapy Complete Philip Ritter MD 4 of 4 cycles started Lifetime Dose Tracking * Chemical Lifetime Dose Automatic Entry Manual Entr y Invasive Cardiology Radiation Exposure 1 mGy 0 mGy 1 mGy 2. DAP 30.65 uGy-m2 0 uGy-m2 30.65 uGy-m2
--- OUTSIDE RECORDS SUMMARY | 2025-06-17 12:00 | XMS_ITS | Encounter Summary ---
Author Organization [facility] Address [address] [place] [address] Phone Care Team Providers Care Chain Hooker Name Role Phone Bryanna Zelaya MD Primary Care Provider [phone] Philip Ritter MD Unavailable [phone] Alexandra Carpenter RN Unavailable [email or web address] Lsia Xiong RN Unavailable [email or web address] Encounter Details Date Type Department Care Team (Late st Contact Info) Description 10/16/[address] [address] Social History Tobacco Use Types Packs/Day Years Used Date Smoking Tobacco: Former Cigarettes Q uit: 09/22/1970 Smokeless Tobacco: Never Alcohol Use Standard Drinks/Week Comments Not Currently 0 (1 standard drink = 0.6 oz pur e alcohol) ' few times per week Sex and Gender Information Value Date Recorded Sex Assigned at Male 07/09/2017 9:36 AM EST Legal Sex Male 2:02 PM EDT Gender Identity Male Sexual Orientation Straight documented as of this encounter Plan of Treatment Upcoming Encounters Date Type Department Care Team (Late st Contact Info) Description 04/17/[address] [address] 04/17/[address] [address] 07/06/2025 1:00 PM EST Appointment [facility], Ct Scan - [facility] 30 [place] [address] Philip Ritter MD [address] [place] [address] 7 [place] [address] VANESSA@[email or web address] 07/14/2025 11:30 AM EST Office Visit [facility] [address] [place] [address] Philip Ritter MD [address] [place] [address] VANESSA@[facility] documented as of this encounter Visit Diagnoses Not on filedocumented in this encounter Care Teams Chain Hooker Relationship Specialty Start Date End Date Bryanna Zelaya MD [address] [place] [address] PCP - General Internal Medicine 11/15/15 Philip Ritter MD [address] [place] [address] [email or web address] Primary Oncologist Surgical Oncology 09/05/22 Alexandra Carpenter, RN [address] [place] [phone] Primary Infusion Nurse 09/07/22 Lisa Xiong RN [address] [place] [address] [email or web address] Associate Infusion Nurse 09/14/22 documented as of this encounter Additional Source Comments The information contained in this document represents components of the legal health record. It is not the complete legal health record.[facility]
--- OUTSIDE RECORDS SUMMARY | 2025-06-17 12:00 | XMS_ITS | Encounter Summary ---
Author Organization [facility] Address [address] [place] [address] Phone Care Team Providers Care Straw Hat Brim Cutter Operator Name Role Phone Bryanna Zelaya MD Primary Care Provider [phone] Philip Ritter MD Unavailable [phone] Alexandra Carpenter RN Unavailable [email or web address] Lisa Xiong RN Unavailable [email or web address] Encounter Details Date Type Department Care Team (Late st Contact Info) Description 07/25/2021 Procedure Pass [facility] - CT Main [address] [address] Social History Tobacco Use Types Packs/Day Years [...] Contact Info) Description 04/17/2025 Procedure Pass [address] [address] 04/17/2025 Procedure Pass [address] [address] 07/06/2025 1:00 PM EST Appointment [facility], Ct Scan - [facility] 30 [place] [address] Philip Ritter MD [address] [place] [address] 7 [place] [address] VANESSA@[email or web address] 07/14/2025 11:30 AM EST Office Visit [facility] [address] [place] [address] Philip Ritter MD [address] [place] [address] 7 [place] [address] VANESSA@[facility] documented as of this encounter Visit Diagnoses Not on filedocumented in this encounter Care Teams Straw Hat Brim Cutter Operator Relationship Specialty Start Date End Date Bryanna Zelaya MD [address] [place] [address] PCP - General Internal Medicine 11/15/15 Philip Ritter MD [address] [place] [address] VANESSA@[email or web address] derek Primary Oncologist Surgical Oncology 09/05/22 Alexandra Carpenter, RN [address] [place] [phone] [email or web address] Primary Infusion Nurse 09/07/22 Lisa Xiong RN [address] [place] [address] [email or web address] Associate Infusion Nurse 09/14/22 documented as of this encounter Additional Source Comments The information contained in this document represents components of the legal health record. It is not the complete legal health record.[facility]
--- OUTSIDE RECORDS SUMMARY | 2025-06-17 12:00 | XMS_ITS | Encounter Summary ---
Author Organization [facility] Address [address] [place] [address] Phone Care Team Providers Care Quality Improvement Coordinator Name Role Phone Bryanna Zelaya MD Primary Care Provider [phone] Philip Ritter MD Unavailable [phone] Alexandra Carpenter RN Unavailable [email or web address] [email or web address] Lisa Xiong RN Unavailable [email or web address] Encounter Details Date Type Department Care Team (Late st Contact Info) Description 01/13/2022 [facility] [address] [place] [address] Social History Tobacco Use Types Packs/Day Years [...] st Contact Info) Description 04/17/2025 Procedure Pass [address] [address] 04/17/2025 Procedure Pass [address] [address] 07/06/2025 1:00 PM EST Appointment [facility], Ct Scan - [facility] 30 [place] [address] Philip Ritter MD [address] [place] [address] 7 [place] [address] VANESSA@[email or web address] 07/14/2025 11:30 AM EST Office Visit [facility] [address] [place] [address] Philip Ritter MD [address] [place] [address] VANESSA@[facility] documented as of this encounter Visit Diagnoses Not on filedocumented in this encounter Care Teams Quality Improvement Coordinator Relationship Specialty Start Date End Date Bryanna Zelaya MD [address] [place] [address] PCP - General Internal Medicine 11/15/15 Philip Ritter MD [address] [place] [address] [email or web address] Primary Oncologist Surgical Oncology 09/05/22 Alexandra Carpenter, RN [address] [place] [phone] [email or web address] Primary Infusion Nurse 09/07/22 Lisa Xiong RN [address] [place] [phone] [email or web address] Associate Infusion Nurse 09/14/22 documented as of this encounter Additional Source Comments The information contained in this document represents components of the legal health record. It is not the complete legal health record.[facility]
--- OUTSIDE RECORDS SUMMARY | 2025-06-17 12:00 | XMS_ITS | Encounter Summary ---
Author Organization [facility] Address [address] [place] [address] Phone Care Team Providers Care Farm Machine Operator Name Role Phone Bryanna Zelaya MD Primary Care Provider [phone] Philip Ritter MD Unavailable [phone] Alexandra Carpenter RN Unavailable [email or web address] [email or web address] [email or web address] Lisa Xiong RN Unavailable [email or web address] Encounter Details Date Type Department Care Team (Late st Contact Info) Description 01/05/2022 Procedure Pass [facility] - CT Main [address] [address] Social History Tobacco Use Types Packs/Day Years [...] Contact Info) Description 04/17/2025 Procedure Pass [address] [address] 04/17/2025 Procedure Pass [address] [address] 07/06/2025 1:00 PM EST Appointment [facility], Ct Scan - [facility] 30 [place] [address] Philip Ritter MD [address] [place] [address] 7 [place] [address] VANESSA@[email or web address] 07/14/2025 11:30 AM EST Office Visit [facility] [address] [place] [address] Philip Ritter MD [address] [place] [address] 7 [place] [address] VANESSA@[facility] documented as of this encounter Visit Diagnoses Not on filedocumented in this encounter Care Teams Farm Machine Operator Relationship Specialty Start Date End Date Bryanna Zelaya MD [address] [place] [address] PCP - General Internal Medicine 11/15/15 Philip Ritter MD [address] [place] [address] VANESSA@[email or web address] derek Primary Oncologist Surgical Oncology 09/05/22 Alexandra Carpenter, RN [address] [place] [phone] [email or web address] Primary Infusion Nurse 09/07/22 Lisa Xiong RN [address] [place] [address] [email or web address] Associate Infusion Nurse 09/14/22 documented as of this encounter Additional Source Comments The information contained in this document represents components of the legal health record. It is not the complete legal health record.[facility]
--- OUTSIDE RECORDS SUMMARY | 2025-06-17 12:00 | XMS_ITS | Encounter Summary ---
Author Organization [facility] Address [address] [place] [address] Phone Care Team Providers Care Steel Engraver Name Role Phone Bryanna Zelaya MD Primary Care Provider [phone] Philip Ritter MD Unavailable [phone] Alexandra Carpenter RN Unavailable [email or web address] Lisa Xiong RN Unavailable [email or web address] Encounter Details Date Type Department Care Team (Late st Contact Info) Description 05/17/[address] [address] Social History Tobacco Use Types Packs/Day Years [...] (Late st Contact Info) Description 04/17/[address] [address] 04/17/[address] [address] 07/06/2025 1:00 PM EST Appointment [facility], Ct Scan - [facility] 30 [place] [address] Philip Ritter MD [address] [place] [address] VANESSA@[email or web address] 07/14/2025 11:30 AM EST Office Visit [facility] [address] [place] [address] Philip Ritter MD [address] [place] [address] VANESSA@[email or web address] documented as of this encounter Visit Diagnoses Not on filedocumented in this encounter Care Teams Steel Engraver Relationship Specialty Start Date End Date Bryanna Zelaya MD [address] [place] [address] PCP - General Internal Medicine 11/15/15 Philip Ritter MD [address] [place] [address] [email or web address] Primary Oncologist Surgical Oncology 09/05/22 Alexandra Carpenter, RN [address] [place] [phone] [email or web address] Primary Infusion Nurse 09/07/22 Lisa Xiong RN [address] [place] [address] [email or web address] Associate Infusion Nurse 09/14/22 documented as of this encounter Additional Source Comments The information contained in this document represents components of the legal health record. It is not the complete legal health record.[facility]
--- OUTSIDE RECORDS SUMMARY | 2025-06-17 12:00 | XMS_ITS | Encounter Summary ---
Author Organization [facility] Address [address] [place] [address] Phone Care Team Providers Care Line Assembly Utility Worker Name Role Phone Bryanna Zelaya MD Primary Care Provider [phone] Philip Ritter MD Unavailable [phone] Alexandra Carpenter RN Unavailable [email or web address] Lisa Xiong RN Unavailable [email or web address] Encounter Details Date Type Department Care Team (Late st Contact Info) Description 02/28/2021 Procedure Pass [facility] - CT Main [address] [address] Social History Tobacco Use Types Packs/Day Years [...] st Contact Info) Description 04/17/2025 Procedure Pass [address] [address] 04/17/2025 Procedure Pass [address] [address] 07/06/2025 1:00 PM EST Appointment [facility], Ct Scan - [facility] 30 [place] [address] Philip Ritter MD [address] [place] [address] 7 [place] [address] VANESSA@[email or web address] 07/14/2025 11:30 AM EST Office Visit [facility] [address] [place] [address] Philip Ritter MD [address] [place] [address] 7 [place] [address] VANESSA@[facility] documented as of this encounter Visit Diagnoses Not on filedocumented in this encounter Care Teams Line Assembly Utility Worker Relationship Specialty Start Date End Date Bryanna Zelaya MD [address] [place] [address] PCP - General Internal Medicine 11/15/15 Philip Ritter MD [address] [place] [address] [email or web address] [email or web address] Primary Oncologist Surgical Oncology 09/05/22 Alexandra Carpenter, RN [address] [place] [phone] [email or web address] Primary Infusion Nurse 09/07/22 Lisa Xiong RN [address] [place] [address] [email or web address] Associate Infusion Nurse 09/14/22 documented as of this encounter Additional Source Comments The information contained in this document represents components of the legal health record. It is not the complete legal health record.[facility]
--- OUTSIDE RECORDS SUMMARY | 2025-06-17 12:00 | XMS_ITS | Encounter Summary ---
Author Organization [facility] Address [address] [place] [address] Phone Care Team Providers Care Tong Setter Name Role Phone Bryanna Zelaya MD Primary Care Provider [phone] Philip Ritter MD Unavailable Alexandra Carpenter RN Unavailable [email or web address] Lisa Xiong RN Unavailable [email or web address] Encounter Details Date Type Department Care Team (Late st Contact Info) Description 05/17/[address] [address] Social History Tobacco Use Types Packs/Day Years [...] (Late st Contact Info) Description 04/17/[address] [address] 04/17/[address] [address] 07/06/2025 1:00 PM EST Appointment [facility], Ct Scan - [facility] 30 [place] [address] Philip Ritter MD [address] [place] [address] VANESSA@[email or web address] 07/14/2025 11:30 AM EST Office Visit [facility] [address] [place] [address] Philip Ritter MD [address] [place] [address] VANESSA@[facility] documented as of this encounter Visit Diagnoses Not on filedocumented in this encounter Care Teams Tong Setter Relationship Specialty Start Date End Date Bryanna Zelaya MD [address] [place] [address] PCP - General Internal Medicine 11/15/15 Philip Ritter MD [address] [place] [address] [email or web address] [email or web address] Primary Oncologist Surgical Oncology 09/05/22 Alexandra Carpenter, RN [address] [place] [phone] [email or web address] Primary Infusion Nurse 09/07/22 Lisa Xiong RN [address] [place] [address] [email or web address] Associate Infusion Nurse 09/14/22 documented as of this encounter Additional Source Comments The information contained in this document represents components of the legal health record. It is not the complete legal health record.[facility]
--- OUTSIDE RECORDS SUMMARY | 2025-06-17 12:00 | XMS_ITS | Encounter Summary ---
Author Organization [facility] Address [address] [place] [address] Phone Care Team Providers Care Guest Specialist Name Role Phone Bryanna Zelaya MD Primary Care Provider [phone] Philip Ritter MD Unavailable [phone] Alexandra Carpenter RN Unavailable [email or web address] Lisa Xiong RN Unavailable [email or web address] Encounter Details Date Type Department Care Team (Late st Contact Info) Description 01/05/2022 Procedure Pass [facility] - CT Main [address] [address] Social History Tobacco Use Types Packs/Day Years [...] st Contact Info) Description 04/17/2025 Procedure Pass [address] [address] 04/17/2025 Procedure Pass [address] [address] 07/06/2025 1:00 PM EST Appointment [facility], Ct Scan - [facility] 30 [place] [address] Philip Ritter MD [address] [place] [address] 7 [place] [address] VANESSA@[email or web address] 07/14/2025 11:30 AM EST Office Visit [facility] [address] [place] [address] Philip Ritter MD [address] [place] [address] 7 [place] [address] VANESSA@[email or web address] documented as of this encounter Visit Diagnoses Not on filedocumented in this encounter Care Teams Guest Specialist Relationship Specialty Start Date End Date Bryanna Zelaya MD [address] [place] [address] PCP - General Internal Medicine 11/15/15 Philip Ritter MD [address] [place] [address] VANESSA@[email or web address] derek Primary Oncologist Surgical Oncology 09/05/22 Alexandra Carpenter, RN [address] [place] [phone] [email or web address] Primary Infusion Nurse 09/07/22 Lisa Xiong RN [address] [place] [address] [email or web address] Associate Infusion Nurse 09/14/22 documented as of this encounter Additional Source Comments The information contained in this document represents components of the legal health record. It is not the complete legal health record.[facility]
--- OUTSIDE RECORDS SUMMARY | 2025-06-17 12:00 | XMS_ITS | Encounter Summary ---
Author Organization [facility] Address [address] [place] [address] Phone Care Team Providers Care Glycerin Operator Name Role Phone Bryanna Zelaya MD Primary Care Provider [phone] Philip Ritter MD Unavailable [phone] Alexandra Carpenter RN Unavailable [email or web address] Lisa Xiong RN Unavailable [email or web address] Encounter Details Date Type Department Care Team (Late st Contact Info) Description 09/17/2023 Procedure Pass [facility], Ct Scan - [address] [id number] Social History Tobacco Use Types Packs/Day Years [...] Contact Info) Description 04/17/2025 Procedure Pass [address] [address] 04/17/2025 Procedure Pass [address] [address] 07/06/2025 1:00 PM EST Appointment [address] [address] Philip Ritter MD [address] [place] [address] VANESSA@[facility] 07/14/2025 11:30 AM EST Office [facility] [address] [place] [address] Philip Ritter MD [address] [place] [address] VANESSA@[facility] documented as of this encounter Visit Diagnoses Not on filedocumented in this encounter Care Teams Glycerin Operator Relationship Specialty Start Date End Date Bryanna Zelaya MD [address] [place] [phone] PCP - General Internal Medicine 11/15/15 Philip Ritter MD 4 [place] [address] VANESSA@[email or web address]. derek Primary Oncologist Surgical Oncology 09/05/22 Alexandra Carpenter, RN [address] [place] [phone] [email or web address] Primary Infusion Nurse 09/07/22 Lisa Xiong RN [address] [place] [phone] [email or web address] Associate Infusion Nurse 09/14/22 documented as of this encounter Additional Source Comments The information contained in this document represents components of the legal health record. It is not the complete legal health record.[facility]
--- OUTSIDE RECORDS SUMMARY | 2025-06-17 12:00 | XMS_ITS | Encounter Summary ---
Author Organization [facility] Address [address] [place] [address] Phone Care Team Providers Care Senior Software Quality Analyst Name Role Phone Bryanna Zelaya MD Primary Care Provider Philip Ritter MD Unavailable [phone] Alexandra Carpenter RN Unavailable [email or web address] Lisa Xiong RN Unavailable [email or web address] Encounter Details Date Type Department Care Team (Late st Contact Info) Description 09/17/2023 Procedure Pass [facility], Ct Scan - [address] [id number] Social History Tobacco Use Types Packs/Day Years [...] st Contact Info) Description 04/17/2025 Procedure Pass [address] [address] 04/17/2025 Procedure Pass [address] [address] 07/06/2025 1:00 PM EST Appointment [address] [address] Philip Ritter MD [address] [place] [address] VANESSA@[email or web address] 07/14/2025 11:30 AM EST Office [facility] [address] [place] [address] Philip Ritter MD [address] [place] [address] VANESSA@[email or web address] documented as of this encounter Visit Diagnoses Not on filedocumented in this encounter Care Teams Senior Software Quality Analyst Relationship Specialty Start Date End Date Bryanna Zelaya MD [address] [place] [phone] PCP - General Internal Medicine 11/15/15 Philip Ritter MD 4 [place] [address] VANESSA@[email or web address]. derek Primary Oncologist Surgical Oncology 09/05/22 Alexandra Carpenter, RN [address] [place] [phone] [email or web address] Primary Infusion Nurse 09/07/22 Lisa Xiong RN [address] [place] [phone] [email or web address] Associate Infusion Nurse 09/14/22 documented as of this encounter Additional Source Comments The information contained in this document represents components of the legal health record. It is not the complete legal health record.[facility]
--- OUTSIDE RECORDS SUMMARY | 2025-06-17 12:00 | XMS_ITS | Encounter Summary ---
Author Organization [facility] Address [address] [place] [address] Phone Care Team Providers Care Clinical Services Manager Name Role Phone Bryanna Zelaya MD Primary Care Provider [phone] Philip Ritter MD Unavailable [phone] Alexandra Carpenter RN Unavailable [email or web address] Lisa Xiong RN Unavailable [email or web address] Encounter Details Date Type Department Care Team (Late st Contact Info) Description 10/16/[address] [address] Social History Tobacco Use Types Packs/Day Years [...] (Late st Contact Info) Description 04/17/[address] [address] 04/17/[address] [address] 07/06/2025 1:00 PM EST Appointment [facility], Ct Scan - [facility] 30 [place] [address] Philip Ritter MD [address] [place] [address] 7 [place] [address] VANESSA@[email or web address] 07/14/2025 11:30 AM EST Office Visit [facility] [address] [place] [address] Philip Ritter MD [address] [place] [address] VANESSA@[email or web address] documented as of this encounter Visit Diagnoses Not on filedocumented in this encounter Care Teams Clinical Services Manager Relationship Specialty Start Date End Date Bryanna Zelaya MD [address] [place] [address] PCP - General Internal Medicine 11/15/15 Philip Ritter MD [address] [place] [address] [email or web address] Primary Oncologist Surgical Oncology 09/05/22 Alexandra Carpenter, RN [address] [place] [phone] Primary Infusion Nurse 09/07/22 Lisa Xiong RN [address] [place] [phone] [email or web address] Associate Infusion Nurse 09/14/22 documented as of this encounter Additional Source Comments The information contained in this document represents components of the legal health record. It is not the complete legal health record.[facility]
--- OUTSIDE RECORDS SUMMARY | 2025-06-17 12:00 | XMS_ITS | Encounter Summary ---
Author Organization [facility] Address [address] [place] [address] Phone Care Team Providers Care Branch Lead Name Role Phone Bryanna Zelaya MD Primary Care Provider [phone] Philip Rittre MD Unavailable [phone] Alexandra Carpenter RN Unavailable [email or web address] Lisa Xiong RN Unavailable [email or web address] Encounter Details Date Type Department Care Team (Late st Contact Info) Description 09/29/2020 Procedure Pass [facility] [address] [place] [address] Social History Tobacco Use Types Packs/Day Years [...] Date of Assessment Author No Risk Indicated 09/29/2020 5:10 PM EDT Vanessa Yates RN * [place] Suicide Severity Rating Scale (Screener/Recent Self-Report) Question Answer Date of Assessment Author 1. Wish to be (Past 1 Month) No 021 5:10 PM EDT Yates, Vanessa B, RN 2. Non-Specific Active Suici sylvia Thoughts (Past 1 Month) No 09/29/2020 5:10 PM EDT Shaun Yates, RN 6. Suicidal Behavior (Lifetime) No 5:10 PM EDT Vanessa Yates, RN documented as of this encounter Plan of Treatment Upcoming Encounters Date Type Department Care Team (Late st Contact Info) Description 04/17/2025 Procedure Pass [address] [address] 04/17/[address] [address] 07/06/2025 1:00 PM EST Appointment [address] [address] Philip Ritter MD [address] [place] [address] VANESSA@[email or web address] 07/14/2025 11:30 AM EST Office [facility] [address] [place] [address] Philip Ritter MD [address] [place] [address] VANESSA@[email or web address] documented as of this encounter Visit Diagnoses Not on filedocumented in this encounter Care Teams Branch Lead Relationship Specialty Start Date End Date Bryanna Zelaya MD [address] [place] [address] PCP - General Internal Medicine 11/15/15 Philip Ritter MD [address] [place] [address] [email or web address] Primary Oncologist Surgical Oncology 09/05/22 Alexandra Carpenter, RN [address] [place] [phone] [email or web address] Primary Infusion Nurse 09/07/22 Lisa Xiong, STEPEHN [address] [place] [address] [email or web address] Associate Infusion Nurse 09/14/22 documented as of this encounter Additional Source Comments The information contained in this document represents components of the legal health record. It is not the complete legal health record.[facility]
--- OUTSIDE RECORDS SUMMARY | 2025-06-17 12:00 | XMS_ITS | Encounter Summary ---
Author Organization [facility] Address [address] [place] [address] Phone Care Team Providers Care Senior Control Systems Engineer Name Role Phone Bryanna Zelaya MD Primary Care Provider [phone] Philip Ritter MD Unavailable [phone] Alexandra Carpenter RN Unavailable [email or web address] Lisa Xiong RN Unavailable [email or web address] Encounter Details Date Type Department Care Team (Late st Contact Info) Description 05/17/[address] [address] Social History Tobacco Use Types Packs/Day Years [...] (Late st Contact Info) Description 04/17/[address] [address] 04/17/[address] [address] 07/06/2025 1:00 PM EST Appointment [facility], Ct Scan - [facility] 30 [place] [address] Philip Ritter MD [address] [place] [address] [email or web address] 07/14/2025 11:30 AM EST Office Visit [facility] [address] [place] [address] Philip Ritter MD [address] [place] [address] VANESSA@[email or web address] documented as of this encounter Visit Diagnoses Not on filedocumented in this encounter Care Teams Senior Control Systems Engineer Relationship Specialty Start Date End Date Bryanna Zelaya MD [address] [place] [address] PCP - General Internal Medicine 11/15/15 Philip Ritter MD [address] [place] [address] [email or web address] Primary Oncologist Surgical Oncology 09/05/22 Alexandra Carpenter, RN [address] [place] [phone] [email or web address] Primary Infusion Nurse 09/07/22 Lisa Xiong RN [address] [place] [address] [email or web address] Associate Infusion Nurse 09/14/22 documented as of this encounter Additional Source Comments The information contained in this document represents components of the legal health record. It is not the complete legal health record.[facility]
--- OUTSIDE RECORDS SUMMARY | 2025-06-17 12:00 | XMS_ITS | Encounter Summary ---
Author Organization [facility] Address [address] [place] [address] Phone Care Team Providers Care Orthopedic Physical Therapist Name Role Phone Bryanna Zelaya MD Primary Care Provider [phone] Philip Ritter MD Unavailable [phone] Alexandra Carpenter RN Unavailable [email or web address] Lisa Xiong RN Unavailable [email or web address] Encounter Details Date Type Department Care Team (Late st Contact Info) Description 02/28/2021 Procedure Pass [facility] - [facility] Main [address] [address] Social History Tobacco Use Types Packs/Day Years [...] Contact Info) Description 04/17/2025 Procedure Pass [address] [address] 04/17/2025 Procedure Pass [address] [address] 07/06/2025 1:00 PM EST Appointment [facility], Ct Scan - [facility] 30 [place] [address] Philip Ritter MD [address] [place] [address] 7 [place] [address] [email or web address] 07/14/2025 11:30 AM EST Office Visit [facility] [address] [place] [address] Philip Ritter MD [address] [place] [address] 7 [place] [address] VANESSA@[email or web address] documented as of this encounter Visit Diagnoses Not on filedocumented in this encounter Care Teams Orthopedic Physical Therapist Relationship Specialty Start Date End Date Bryanna Zelaya MD [address] [place] [address] PCP - General Internal Medicine 11/15/15 Philip Ritter MD [address] [place] [address] [email or web address] Primary Oncologist Surgical Oncology 09/05/22 Alexandra Carpenter, RN [address] [place] [phone] [email or web address] Primary Infusion Nurse 09/07/22 Lisa Xiong RN [address] [place] [address] [email or web address] Associate Infusion Nurse 09/14/22 documented as of this encounter Additional Source Comments The information contained in this document represents components of the legal health record. It is not the complete legal health record.[facility]
--- OUTSIDE RECORDS SUMMARY | 2025-06-17 12:00 | XMS_ITS | Encounter Summary ---
Author Organization [facility] Address [address] [place] [address] Phone Care Team Providers Care Boiler Setter Name Role Phone Bryanna Zelaya MD Primary Care Provider [phone] Philip Ritter MD Unavailable [phone] Alexandra Carpenter RN Unavailable [email or web address] Lisa Xiong RN Unavailable [email or web address] Encounter Details Date Type Department Care Team (Late st Contact Info) Description 01/05/2022 Procedure Pass [facility] - [facility] Main [address] [address] Social History Tobacco Use Types Packs/Day Years [...] Contact Info) Description 04/17/2025 Procedure Pass [address] [address] 04/17/2025 Procedure Pass [address] [address] 07/06/2025 1:00 PM EST Appointment [facility], Ct Scan - [facility] 30 [place] [address] Philip Ritter MD [address] [place] [address] 7 [place] [address] VANESSA@[email or web address] 07/14/2025 11:30 AM EST Office Visit [facility] [address] [place] [address] Philip Ritter MD [address] [place] [address] 7 [place] [address] VANESSA@[email or web address] documented as of this encounter Visit Diagnoses Not on filedocumented in this encounter Care Teams Boiler Setter Relationship Specialty Start Date End Date Bryanna Zelaya MD [address] [place] [address] PCP - General Internal Medicine 11/15/15 Philip Ritter MD [address] [place] [address] [email or web address] Primary Oncologist Surgical Oncology 09/05/22 Alexandra Carpenter, RN [address] [place] [phone] [email or web address] Primary Infusion Nurse 09/07/22 Lisa Xiong RN [address] [place] [address] [email or web address] Associate Infusion Nurse 09/14/22 documented as of this encounter Additional Source Comments The information contained in this document represents components of the legal health record. It is not the complete legal health record.[facility]
--- OUTSIDE RECORDS SUMMARY | 2025-06-17 12:00 | XMS_ITS | Encounter Summary ---
Author Organization [facility] Address [address] [place] [address] Phone Care Team Providers Care Tanbark Laborer Name Role Phone Bryanna Zelaya MD Primary Care Provider [phone] Philip Ritter MD Unavailable [phone] Alexandra Carpenter RN Unavailable [email or web address] Lisa Xiong RN Unavailable [email or web address] Encounter Details Date Type Department Care Team (Late st Contact Info) Description 02/28/2021 Procedure Pass [facility] - [facility] Main [address] [address] Social History Tobacco Use Types Packs/Day Years [...] st Contact Info) Description 04/17/2025 Procedure Pass [address] [address] 04/17/2025 Procedure Pass [address] [address] 07/06/2025 1:00 PM EST Appointment [facility], Ct Scan - [facility] 30 [place] [address] Philip Ritter MD [address] [place] [address] 7 [place] [address] [email or web address] 07/14/2025 11:30 AM EST Office Visit [facility] [address] [place] [address] Philip Ritter MD [address] [place] [address] 7 [place] [address] VANESSA@[email or web address] documented as of this encounter Visit Diagnoses Not on filedocumented in this encounter Care Teams Tanbark Laborer Relationship Specialty Start Date End Date Bryanna Zelaya MD [address] [place] [address] PCP - General Internal Medicine 11/15/15 Philip Ritter MD [address] [place] [address] [email or web address] Primary Oncologist Surgical Oncology 09/05/22 Alexandra Carpenter, RN [address] [place] [phone] [email or web address] Primary Infusion Nurse 09/07/22 Lisa Xiong RN [address] [place] [address] [email or web address] Associate Infusion Nurse 09/14/22 documented as of this encounter Additional Source Comments The information contained in this document represents components of the legal health record. It is not the complete legal health record.[facility]
--- OUTSIDE RECORDS SUMMARY | 2025-06-17 12:01 | XMS_ITS | Encounter Summary ---
Author Organization [facility] Address [address] [place] [address] Phone Care Team Providers Care Type Bar And Segment Assembler Name Role Phone Bryanna Zelaya MD Primary Care Provider [phone] Philip Ritter MD Unavailable [phone] Alexandra Carpenter RN Unavailable [email or web address] Lisa Xiong RN Unavailable [email or web address] Encounter Details Date Type Department Care Team (Late st Contact Info) Description 01/03/2022 Procedure Pass [facility] - CT Main [address] [address] Social History Tobacco Use Types Packs/Day Years [...] st Contact Info) Description 04/17/2025 Procedure Pass [address] [address] 04/17/2025 Procedure Pass [address] [address] 07/06/2025 1:00 PM EST Appointment [facility], Ct Scan - [facility] [address] [place] [address] Philip Ritter MD [address] [place] [address] 7 [place] [address] VANESSA@[email or web address] 07/14/2025 11:30 AM EST Office Visit [facility] [address] [place] [address] Philip Ritter MD [address] [place] [address] 7 [place] [address] VANESSA@[email or web address] documented as of this encounter Visit Diagnoses Not on filedocumented in this encounter Care Teams Type Bar And Segment Assembler Relationship Specialty Start Date End Date Bryanna Zelaya MD [address] [place] [address] PCP - General Internal Medicine 11/15/15 Philip Ritter MD [address] [place] [address] [email or web address] Primary Oncologist Surgical Oncology 09/05/22 Alexandra Carpenter, RN [address] [place] [phone] [email or web address] Primary Infusion Nurse 09/07/22 Lisa Xiong RN [address] [place] [phone] [email or web address] Associate Infusion Nurse 09/14/22 documented as of this encounter Additional Source Comments The information contained in this document represents components of the legal health record. It is not the complete legal health record.[facility]
--- OUTSIDE RECORDS SUMMARY | 2025-06-17 12:01 | XMS_ITS | Encounter Summary ---
Author Organization [facility] Address [address] [place] [address] Phone Care Team Providers Care Curriculum And Assessment Director Name Role Phone Bryanna Zelaya MD Primary Care Provider [phone] Philip Ritter MD Unavailable Alexandra Carpenter RN Unavailable [email or web address] Lisa Xiong RN Unavailable [email or web address] Encounter Details Date Type Department Care Team (Late st Contact Info) Description 08/24/2023 Procedure Pass [facility] [address] [place], [place] [id number] Social History Tobacco Use Types Packs/Day Years [...] Contact Info) Description 04/17/2025 Procedure Pass [address] [address] 04/17/2025 Procedure Pass [address] [address] 07/06/2025 1:00 PM EST Appointment [address] [address] Philip Ritter MD [address] [place] [address] VANESSA@[email or web address] 07/14/2025 11:30 AM EST Office [facility] [address] [place] [address] Philip Ritter MD [address] [place] [address] VANESSA@[email or web address] documented as of this encounter Visit Diagnoses Not on filedocumented in this encounter Care Teams Curriculum And Assessment Director Relationship Specialty Start Date End Date Bryanna Zelaya MD [address] [place] [phone] PCP - General Internal Medicine 11/15/15 Philip Ritter MD 4 [place] [address] VANESSA@[email or web address] Primary Oncologist Surgical Oncology 09/05/22 Alexandra Carpenter, RN [address] [place] [phone] [email or web address] Primary Infusion Nurse 09/07/22 Lisa Xiong RN [address] [place] [address] [email or web address] Associate Infusion Nurse 09/14/22 documented as of this encounter Additional Source Comments The information contained in this document represents components of the legal health record. It is not the complete legal health record.[facility]
--- OUTSIDE RECORDS SUMMARY | 2025-06-17 12:01 | XMS_ITS | Clinical Summary ---
Author Organization [facility] [employer] [facility] Address [address] [place] [address] Phone Care Team Providers Care Bacteriologist Food Name Role Phone Bryanna Zelaya MD Primary Care Provider [phone] Allergies No known active allergies Medications levothyroxine (SYNTHROID, LEVOTHROID) 75 mcg tablet Take 1 tablet (75 mcg total) by mouth 1 (one) time each day before breakfast. Active vit A/vit C/vit E/zinc/copper (PRESERVISION AREDS ORAL) Take by mouth. Active amLODIPine (NORVASC) 10 mg tablet TAKE ONE TABLET BY MOUTH EVERY DAY 90 tablet 5 Active lisinopril (PRINIVIL,ZESTR IL) 40 mg tablet TAKE ONE TABLET BY MOUTH EVERY DAY 90 tablet 5 Active atenoloL (TENORMIN) 50 mg tablet TAKE ONE TABLET BY MOUTH EVERY DAY 90 tablet 5 Active hydroCHLOROthia zide (HYDRODIURIL) 25 mg tablet TAKE ONE TABLET BY MOUTH EVERY DAY 90 tablet 5 Active naproxen (NAPROSYN) 500 mg tablet Take 1 tablet (500 mg total) by mouth 2 (two) times a day with meals. 14 tablet 5 Active naproxen (NAPROSYN) 500 mg tablet Take 1 tablet (500 mg total) by mouth 2 (two) times a day with meals for 10 days. 20 each 5 05/27/20 25 Discontinued Active Problems Problem Noted Date Diagnosed Date S/p TAVR (transcatheter aort ic valve replacement), bioprosthetic 01/16/2025 Overview (03/22/2025): October 2024 pre-TAVR cardiac catheterization showing 20% distal left main, 40% mid LAD, 60% proximal RCA, 50% mid RCA consistent with moderate RCA stenosis unchanged from prebypass angiography with recommendations for medical therapy January 08, 2025 successful transfemoral valve in valve TAVR with Medtronic evolute pro valve by Dr. Travis with intraoperative complication of complete heart block; implantation of dual-chamber left bundle area pacemaker by Dr. Roberts; patient discharged on apixaban monotherapy 01/28/25 TRANSTHORACIC ECHOCARDIOGRAM (TTE) COMPLETE (CONTRAST/BUBBLE/3D PRN) 01/29/2025 01/28/2025 Interpretation Summary Left ventricle cavity size is normal. There is mild hypertrophy. Systolic function is normal with an ejection fraction of 55-60%. Abnormal septal bounce. There is Grade II (moderate) diastolic dysfunction. S/p TAVR, the valve is functioning normally Compared to the prior study from September 2024, the patient underwent AVR and the valve is functioning normally; the estimated PA pressures remain elevated however are lower compared to prior Signed by: Marquis Travis MD on 01/29/2025 11:09 AM Assessment & Plan (03/22/2025 10:28 PM EDT): Successful valve in valve TAVR using 23 mm medtronic evolute pro Bioprosthetic valve on 01/08/25. Procedure complicated by complete heart block requiring implantation of dual chamber left bundle area pacemaker. The patient is having symptomatic improvement following his TAVR. His valve is working well on exam, by echocardiogram and by symptoms. Instructed him about the need for prophylactic antibiotics prior to dental work. He will have a one year TAVR echocardiogram and then a one year TAVR follow up. Orders: amoxicillin (AMOXIL) 500 mg capsule; Take 4 caps (2000 mg) 1 hour prior to procedure. Assessment & Plan (01/16/2025 10:39 AM EDT): Successful valve in valve TAVR using 23 mm medtronic evolute pro Bioprosthetic valve on 01/08/25. Procedure complicated by complete heart block requiring implantation of dual chamber left bundle area pacemaker. The patient is having symptomatic improvement following his TAVR. His valve is working well on exam and by symptoms. Instructed him about the need for prophylactic antibiotics prior to dental work. He is scheduled for a one month TAVR echocardiogram and then one month TAVR follow up. Pacemaker 01/16/2025 Overview (01/16/2025): December 2024 - complete heart block status post TAVR with implantation of Medtronic dual chamber left bundle area pacemaker by Dr. Roberts Assessment & Plan (03/22/2025 10:28 PM EDT): Device working well on recent check. He is device dependant. Continue to monitor via [facility]. Assessment & Plan (01/16/2025 10:39 AM EDT): Device working well on recent remote check. Continue to monitor via [facility]. Abdominal aortic aneurysm without rupture 2024 Iliac artery aneurysm, right 01/14/2025 Aortic stenosis 01/14/2025 S/P AVR (aortic valve replacement) 10/13/2024 Overview (10/13/2024): -status post SAVR in March 2016 -pre procedural cath in 2015 showed mild, nonobs CAD -Most recent echocardiogram on 08/02/2023 showed mild, concentric left ventricular hypertrophy with normal cavity size and hyperdynamic systolic function, there is midsystolic collapse, normal regional wall motion and an ejection fraction greater than 70%, there is a mid cavitary gradient of at least 41 mmHg that was incidentally noted on Doppler assessment of the aortic valve, provocation was not performed however, paradoxic septal motion is noted in keeping with prior cardiac surgery, moderate left atrial enlargement, mildly dilated RV with mildly reduced systolic function, bioprosthetic aortic valve replacement-valve is well-seated with physiologic performance, trace, likely central AI, gradients were slightly higher than expected for this type of valve-this is likely secondary to hyperdynamic state, mild MR, no mitral stenosis, normal pulmonary artery systolic pressure-compared with prior echo from 2021, findings are unchanged with the exception of the fact that the patient is very hyperdynamic on more recent study Assessment & Plan (01/16/2025 10:39 AM EDT): Now status post valve and valve TAVR. PVC's (premature ventricular contractions) 10/13 (HFpEF) heart failure with preserved ejection fr action 11/05/2023 Overview (11/11/2024): Assessment & Plan (03/22/2025 10:28 PM EDT): Echocardiogram from December 2024 showed preserved LV systolic function LVEF 63%. He appears compensated on exam. Continue with HCTZ, lisinopril and atenolol. Consider adding SGLT2 inhibitor. We reviewed heart failure management including low- sodium diet, symptom surveillance, daily weights and medication compliance. If the patient has weight gain over 3lbs in one day or 5lbs over several days, they are aware to contact our office. With any severe or sustained symptoms, they are aware to contact EMS via 911 and go to the emergency room. Assessment & Plan (01/16/2025 10:39 AM EDT): Echocardiogram from December 2024 showed preserved LV systolic function LVEF 63%. He appears compensated on exam. Continue with HCTZ, lisinopril and atenolol. Consider adding SGLT2 inhibitor. We reviewed heart failure management including low- sodium diet, symptom surveillance, daily weights and medication compliance. If the patient has weight gain over 3lbs in one day or 5lbs over several days, they are aware to contact our office. With any severe or sustained symptoms, they are aware to contact EMS via 911 and go to the emergency room. 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 Apparently not symptomatic, but not completely clear. CHADSVASc 5. Currently on apixaban (due to valve in valve procedure, but will stay on due to PAF) and atenolol. Will monitor burden via device from here forward. Orders: ECG 12 lead Assessment & Plan (01/16/2025 10:39 AM EDT): Paroxysmal atrial fibrillation. Apparently not symptomatic, but not completely clear. CHADSVASc 5. Currently on apixaban (due to valve in valve procedure, but will stay on due to PAF) and atenolol. Will monitor burden via device from here forward. Nonexudative age-related macular degeneration Lyme disease 01/07/2016 Overview (06/15/2024): 01/14 Zoster 01/05/2016 Overview (06/15/2024): 12/15 Erectile dysfunction 10/10/2010 Hyperlipidemia 10/10/2006 Assessment & Plan (03/22/2025 10:28 PM EDT): Diet controlled. Given CAD on recent angiogram may consider small dose of statin therapy. Assessment & Plan (01/16/2025 10:39 AM EDT): Diet controlled. Given CAD on recent angiogram may consider small dose of statin therapy. Hypertension 08/08/2006 Overview (11/11/2024): Assessment & Plan (03/22/2025 10:28 PM EDT): Controlled. Continue with amlodipine, HCTZ atenolol and lisinopril. Assessment & Plan (01/16/2025 10:39 AM EDT): Controlled. Continue with amlodipine, HCTZ atenolol and lisinopril. Resolved Problems Problem Noted Date Diagnosed Date Resolved Date Ecchymosis 01/16/2025 05/14/2025 Assessment & Plan (01/16/2025 10:39 AM EDT): Device procedure site with resolving hematoma and diffuse ecchymosis. No compromise to CMS to extremity. Recent device check remotely with normal device function. Will hold two doses of apixaban. Device and wound check next week. No signs or symptoms of infection. Will get CBC on Sunday. Orders: CBC and differential; Future Heart murmur 01/14/2025 05/14/2025 Encounters Date Type Department Care Team Description 06/17/2025 11:08 AM EST Hospital Encounter XRAY - [place] [address] [place] [address] Pain in left hip; Unilateral primary osteoarthritis, left hip 06/09/2025 1:00 PM EST Office Visit General Surgery [address] [phone] Amos Huang MD Left inguinal pain (Primary Dx) 06/09/[address] [phone] Amos Huang MD 06/03/[address] [phone] Amos Huang MD 06/02/2025 1:42 PM EST - 06/02/2025 11:59 PM EST Hospital Encounter CT Scan - [place] [address] [place] [address] Left inguinal pain Discharge Disposition: Home or Self Care 05/29/2025 11:50 AM EST Lab Draw Station - [address] [place] [phone] Left inguinal pain 05/29/2025 11:15 AM EST Consult General Surgery [address] [place] [address] Amos Huang MD Left inguinal pain (Primary Dx) 05/15/2025 10:55 AM EST - 05/15/2025 11:59 PM EST Hospital Encounter Ultrasound - [place] [address] [place] [phone] Left leg pain Discharge Disposition: Home or Self Care 05/15/2025 Results Follow-Up Adult Medicine [address] [phone] Violeta Majano PA 05/14/2025 3:30 PM EST Office Visit Adult [address] [phone] Violeta Majano PA Left leg pain (Primary Dx) 05/14/2025 Nurse Triage [address] [phone] Bryanna Zelaya MD 04/17/2025 2:15 AM EDT Ancillary Procedure [facility] [address] [facility] [address] [place] [address] from Last 3 Months Immunizations Immunization Administration Dates Next Due Influenza Quadravalent, 0.5m l (Fluad) 65yo and older 03/28/2023 Influenza trivalent, 0.5mL ( Fluad) 65yo and older 04/09/2024,05/02/2023,03/08/2022,03/22,02/26/2020,05/07/2019,03/14/2018 ,04/10/2017,05/21/2015,04/10/2014,03/02,03/08/2012 Influenza trivalent, 0.5mL, preservative free (Fluarix; FluLaval; Fluzone) ages 6mo and older (Afluria) 3 years and older 07/31/2007 Influenza, Unspecified 03/14/2018 Pfizer (ages 12 & older) Biv alent, COVID-19 03/28/2023,03/15/2022 Pneumococcal conjugate 13 va lent (Prevnar 13, PCV13) 2mo and older 09/04/2016 Pneumococcal polysaccharide 23 valent (Pneumovax 23) 2yo and older 03/01/2011 Respiratory syncytial virus (RSV), unspecified 05/09/2023 Td Tetanus diptheria (Tdvax) 7yo and older 09/26/2017 Tdap Tetanus diptheria acell ular pertussis (Boostrix; Adacel) 7yo and older 07/31/2007 Zoster Live 09/08/2012 Zoster recombinant (Shingrix ) 19yo and older 09/04/2023,05/09/2023 Surgical History Surgery Date Site/Laterality Comments HERNIA REPAIR inguinal COLONOSCOPY 12/25/2007 Up to cecum, good preparation, normal colon exam COLONOSCOPY 02/12/2019 negative screening exam OTHER SURGICAL HISTORY parotidectomy Medical History Medical History Date Comments Aortic valve disorders 10/08/2006 mild to m oderate on echo 08/2006 Zoster 01/05/201612/15 Lyme disease 01/07/201601/14 Atrial fibrillation ([facility] V24, [facility] V28) 09/04/2016 Post AVR Cancer of head, face, or nec k lymph nodes, secondary ([facility] V24, [facility] V28) 12/06/2020 Metastatic SCC, resected wit h RT Hypothyroidism 02/28/2023 (HFpEF) heart failure with p reserved ejection fraction ([facility] V24, [facility] V28) 11/05/2023 Hyperlipidemia 10/10/2006 S/P AVR (aortic valve replacement) 10/13/2024 s tatus post SAVR in March 2016 -pre procedural cath in 2015 showed mild, nonobs CAD M ost recent echocardiogram on 08/02/2023 showed mild, concentric left ventricular hypertrophy with normal cavity size and hyperdynamic systolic function, there is midsystolic collapse, normal regional wall motion and an ejection fraction greater than 70%, there is a mid cavitary gradient of at least 41 mmHg t Nonexudative age-related mac ular degeneration 01/19/2016 Vitamin B12 deficiency 11/17/2021 Hypertension Osteoarthritis Family History Medical History Relation Name Comments Coronary artery disease Father during a CABG procedure complicated by massive stroke Hypertension Father Cervical cancer Mother Relation Name Status Comments Father Mother Social History Tobacco Use Types Packs/Day Years Used Date Smoking Tobacco: Former Cigarettes 0 Q uit: 07/02/1972 Smokeless Tobacco: Never Tobacco Cessation:Counseling Given: Not Answered Alcohol Use Standard Drinks/Week Comments Yes 0 [...] Orientation Straight 10/13/2024 4: 04 PM EDT Last Filed Vital Signs Vital Sign Reading Time Taken Comments Blood Pressure 164/96 06/09/2025 12:47 PM EST Pulse 86 06/09/2025 12:47 PM EST Temperature 36.3 C (97.3 F) 06/09/2025 12:47 PM EST Respiratory Rate 15 05/14/2025 3:31 PM EST Oxygen Saturation 95% 05/14/2025 3:31 PM EST Inhaled Oxygen Concentration - - Weight 73.9 kg (163 lb) 06/09/2025 12:47 PM EST Height 162.6 cm (5' 4 ) 06/09/2025 12:47 PM EST Body Mass Index 27.98 06/09/2025 12:47 PM EST Plan of Treatment Upcoming Encounters Date Type Department Care Team (Late st Contact Info) Description 07/01/2025 1:00 PM EST Office Visit Adult Medicine [facility] [address], [place] [phone] Bryanna Zelaya MD [address], [place] 01/25/2026 11:00 AM EDT Ancillary Procedure [facility] [address] [facility] [address] [place] [phone] Health Maintenance Due Date Last Done Comments RSV Immunization Adult Patients (1 - 1-dose 75+ series) 2019 05/09/2023 Falls Risk Assessment 2022 Medicare Annual Wellness Visit 02/12/2025 02/13/2024 COVID-19 Vaccine ( season) 2025 05/02/2024, 03/28/2023, 03/15/2022, Additional history exists Social Influencers of Health Screening 01/12/2026 01/12/2025 Hypertension/CHF/CAD Annual BMP Blood Test 05/29/2026 05/29/2025, 10/22/2024, 10/13/2024, Additional history exists Cholesterol Screening (Lipid Panel) 10/24/2026 10/24/2021 DTaP,Tdap,and Td Vaccines (3 - Td or Tdap) 09/27/2027 09/26/2017, 07/31/2007 Pneumococcal Vaccine: 50+ Years Completed 09/04/2016, 03/01/2011 RSV Immunization Patients Under 20 months Aged Out 05/09/2023 No longer eligible based on patient's age to complete this topic Zoster Vaccines Completed 09/04/2023, 01/2023, 09/08/2012 Influenza Vaccine Completed 04/06/2025, , 05/02/2023, Additional history exists Depression Screening Completed 05/14/2025, 02/13/20 24 HIB Vaccines Aged Out No longer eligi ble based on patient's age to complete this topic HPV Vaccines Aged Out No longer eligi ble based on patient's age to complete this topic Hepatitis A Vaccines Aged Out No long er eligible based on patient's age to complete this topic Hepatitis B Vaccines Aged Out No long er eligible based on patient's age to complete this topic IPV Vaccines Aged Out No longer eligi ble based on patient's age to complete this topic MMR Vaccines Aged Out No longer eligi ble based on patient's age to complete this topic Meningococcal ACWY Vaccine Aged Out N o longer eligible based on patient's age to complete this topic Meningococcal B Vaccine Aged Out No l onger eligible based on patient's age to complete this topic Varicella Vaccines Aged Out No longer eligible based on patient's age to complete this topic Medical Devices Implanted Type Area Resident Care Manager Device Identifier Shelf Expiration Date Model / Serial / Lot Medt-Card [place] Xt [employer] Amaya [id number] Implanted:05/2025 (Quantity not on file) Cardiac Pacemaker [employer] - CARDIAC RHYTH-CRDM RAMONA XT DR AMAYA [id number] / [id number] / Medt-Card Ramona Xt Dr Amaya [id number] Implanted:05/2025 (Quantity not on file) Cardiac Pacemaker [employer] - CARDIAC RHYTH-CRDM RAMONA XT DR AMAYA / [id number] / Procedures Procedure Name Priority Date/Time Associated Diagnosis Comments CT PELVIS W CONTRAST STAT 06/02/2025 2:08 PM EST Left inguinal pain BASIC METABOLIC PANEL Routine 05/29/2025 11:48 AM EST Left inguinal pain VAS US DUPLEX LOWER EXT VENOUS LEFT STAT 05/15/2025 11:35 AM EST Left leg pain CARDIAC DEVICE CHECK- REMOTE- MURJ Routine 04/17/2025 2:11 AM EDT HM DEPRESSION SCREENING Routine 02/13/2024 LIPID PANEL Routine 10/24/2021 from Last 3 Months or Most Recently Relevant to Health Maintenance Results * CT Pelvis w Contrast (06/02/2025 2:08 PM EST) Anatomical Region Laterality Modality Body, Pelvis Computed Tomogra phy 06/02/2025 2:42 PM EST Impressions 06/02/2025 2:57 PM EST 1. Fat-containing left inguinal hernia. No evidence of femoral hernia. 2. Probable hydrocele on the right. 3. Abdominal aortic aneurysm measuring 3.0 cm. 4. Right common iliac artery dissection. The flap may contain calcifications and this could be chronic. If this is an unknown dissection, consider further consultation with vascular surgery. INCIDENTAL ANEURYSM: Abdominal aortic aneurysm measures <4.0cm. Follow-up is recommeneded with CTA abdominal aortic protocol every 3 years. Referral to a rn cardiovascular icu may be helpful. -------- FINAL REPORT -------- Dictated By: Cherrie Peace Dictated Date: 06/02/2025 14:42 ET Assigned Physician: Cherrie Peace Reviewed and Electronically Signed By: Cherrie Peace Signed Date: 06/02/2025 14:57 ET Workstation ID: [id number] Transcribed By: Self Edit Transcribed Date: 06/02/2025 14:42 ET Narrative 06/02/2025 2:[address] PELVIS WITH INTRAVENOUS CONTRAST HISTORY: acute L groin pain/ LLE weakness, ? femoral hernia. TECHNIQUE: Multiple contiguous axial images of the pelvis were obtained with the use of 100 Isovue 370 intravenous contrast. Images were reformatted to coronal and sagittal planes. Radiation dosage is 13.68mGy COMPARISON: None FINDINGS: Bladder is well-distended. Prostate contains a few coarse calcifications. The bowel is without obstruction or inflammation and there is no free fluid or free air within the peritoneal cavity. The terminal ileum and appendix are unremarkable. There are no pathologically enlarged lymph nodes in the abdomen or pelvis. Moderate atherosclerotic calcification of the abdominal aorta. Abdominal aorta measures 3.0 cm (series 2, image 1). There is a linear flap within the right common iliac, there may be small calcifications associated with the linear hypodensity. The bilateral common iliacs are ectatic. No evidence of dissection within the right external or internal right iliac. There is a fat-containing 2.1 x 3.2 cm left inguinal hernia. A left femoral hernia is not visualized. Probable hydrocele on the right. Tiny fat-containing umbilical hernia. Moderate degenerative changes of the lumbar spine. Joseph identified within the right femur. Procedure Note Cherrie Peace MD - 06/02/2025 CT PELVIS WITH INTRAVENOUS CONTRAST HISTORY: acute L groin pain/ LLE weakness, ? femoral hernia. TECHNIQUE: Multiple contiguous axial images of the pelvis were obtainedwith the use of 100 Isovue 370 intravenous contrast. Images werereformatted to coronal and sagittal planes. Radiation dosage is 13.68mGy COMPARISON: None FINDINGS: Bladder is well-distended. Prostate contains a few coarsecalcifications. The bowel is without obstruction or inflammation and there is no freefluid or free air within the peritoneal cavity. The terminal ileum andappendix are unremarkable. There are no pathologically enlarged lymphnodes in the abdomen or pelvis. Moderate atherosclerotic calcification of the abdominal aorta. Abdominalaorta measures 3.0 cm (series 2, image 1). There is a linear flap withinthe right common iliac, there may be small calcifications associated withthe linear hypodensity. The bilateral common iliacs are ectatic. Noevidence of dissection within the right external or internal rightiliac. There is a fat-containing 2.1 x 3.2 cm left inguinal hernia. A leftfemoral hernia is not visualized. Probable hydrocele on the right. Tinyfat-containing umbilical hernia. Moderate degenerative changes of thelumbar spine. Joseph identified within the right femur. IMPRESSION: 1. Fat-containing left inguinal hernia. No evidence of femoral hernia. 2. Probable hydrocele on the right. 3. Abdominal aortic aneurysm measuring 3.0 cm. 4. Right common iliac artery dissection. The flap may containcalcifications and this could be chronic. If this is an unknowndissection, consider further consultation with vascular surgery. INCIDENTAL ANEURYSM: Abdominal aortic aneurysm measures <4.0cm. Follow-upis recommeneded with CTA abdominal aortic protocol every 3 years. Referralto a rn cardiovascular icu may be helpful. -------- FINAL REPORT -------- Dictated By: Cherrie Peace Dictated Date: 06/02/2025 14:42 ET Assigned Physician: Cherrie Peace Reviewed and Electronically Signed By: Cherrie Peace Signed Date: 06/02/2025 14:57 ET Workstation ID: [id number] Transcribed By: Self Edit Transcribed Date: 06/02/2025 14:42 ET us Amos Huang MD IM CT PROCEDURES Final Res ult * Basic metabolic panel (05/29/2025 11:48 AM EST) Sodium 138 133 - 145 mmol/L 05/29/2025 2:04 PM [facility] Potassium 3.9 3.5 - 5.5 mmol/L 05/29/2025 2:04 PM [facility] Chloride 100 96 - 110 mmol/L 05/29/2025 2:04 PM [facility] CO2 30 21 - 32 mmol/L 05/29/2025 2:04 PM [facility] Anion Gap 8 3 - 11 05/29/2025 2:04 PM [facility] Glucose 90 70 - 100 mg/dL 05/29/2025 2:04 PM [facility] BUN 23 5 - 25 mg/dL 05/29/2025 2:04 PM [facility] Creatinine 1.21 0.70 - 1.30 mg/dL 05/29/2025 2:04 PM [facility] eGFR 61 >=60 mL/min/1. 73m2 05/29/2025 2:04 PM [facility] Comment:Calculation based on the Chronic Kidney Disease Epidemiology Collaboration (CKD-EPI) equation refit without adjustment for race. BUN/Creatinine Ratio 19.0 05/29/2025 2:04 PM EST [facility] Calcium 8.5 8.5 - 10.5 mg/dL 05/29/2025 2:04 PM EST [facility] Blood Venous blood specimen / Unknown Venipuncture / Unknown 05/29/2025 11:48 AM EST 05/29/2025 11:49 AM EST us Amos Huang MD LAB BLOOD ORDERABLES Final Result [facility] [address] [place] [address], [place] [phone] * Vascular US duplex lower extremity venous left (05/15/2025 11:35 AM EST) Anatomical Region Laterality Modality Vascular, Abdomen Ultrasound 05/15/2025 12:0 8 PM EST Impressions 05/15/2025 12:15 PM EST No evidence of deep venous thrombosis in the left lower extremity. Findings concerning for a left inguinal hernia. -------- FINAL REPORT -------- Dictated By: Monica Mann Dictated Date: 05/15/2025 12:08 ET Assigned Physician: Monica Mann Reviewed and Electronically Signed By: Monica Mann Signed Date: 05/15/2025 12:15 ET Workstation ID: [id number] Transcribed By: Self Edit Transcribed Date: 05/15/2025 12:08 ET Narrative 05/15/2025 12:15 PM EST EXAM: Limited extremity veins ultrasound HISTORY: Left leg pain. COMPARISON: None FINDINGS: Duplex Doppler scanning of the deep venous system of the left lower extremity is performed. Scanning is performed from the proximal common femoral vein and greater saphenous confluence through the popliteal vein. All veins of the deep venous system are normally compressible. Normal Doppler flow is demonstrated within them. Augmentation maneuvers are normal. Gastrocnemius and peroneal veins are normally compressible. Normal color Doppler flow within posterior tibial veins. No popliteal cyst. Patient delineated a focal area of pain in the left inguinal region. Sonography shows an abdominal wall defect measuring 0.9 cm through which heterogeneous material extends into the subcutaneous tissues concerning for an inguinal hernia. Herniated contents measure 2.5 x 1.8 x 1.5 cm. No bowel signature in the herniated material. Procedure Note Monica Mann MD - 05/15/2025 EXAM: Limited extremity veins ultrasound HISTORY: Left leg pain. COMPARISON: None FINDINGS: Duplex Doppler scanning of the deep venous system of the left lowerextremity is performed. Scanning is performed from the proximal commonfemoral vein and greater saphenous confluence through the popliteal vein. All veins of the deep venous system are normally compressible. NormalDoppler flow is demonstrated within them. Augmentation maneuvers arenormal. Gastrocnemius and peroneal veins are normally compressible. Normalcolor Doppler flow within posterior tibial veins. No popliteal cyst. Patient delineated a focal area of pain in the left inguinal region.Sonography shows an abdominal wall defect measuring 0.9 cm through whichheterogeneous material extends into the subcutaneous tissues concerningfor an inguinal hernia. Herniated contents measure 2.5 x 1.8 x 1.5 cm. Nobowel signature in the herniated material. IMPRESSION: No evidence of deep venous thrombosis in the left lower extremity. Findings concerning for a left inguinal hernia. -------- FINAL REPORT -------- Dictated By: Monica Mann Dictated Date: 05/15/2025 12:08 ET Assigned Physician: Monica Mann Reviewed and Electronically Signed By: Monica Mann Signed Date: 05/15/2025 12:15 ET Workstation ID: [id number] Transcribed By: Self Edit Transcribed Date: 05/15/2025 12:08 ET us Violeta BENSON CV VASCULAR PROCEDURES Final Result * Cardiac device check - Remote- MURJ (04/17/2025 2:11 AM EDT) Date Time Interrogation Session [id number] CV DEVICE CHECK Type Interrogation Session Remote CV DEVICE CHECK Implantable Pulse Generator Resident Care Manager MDUyen CV DEVICE CHECK Implantable Pulse Generator Type IPG CV DEVICE CHECK Implantable Pulse Generator Model Ramona XT DR AMAYA [id number] CV DEVICE CHECK Implantable Pulse Generator Serial Number [id number] CV DEVICE CHECK Implantable Pulse Generator Implant Date 20250109 CV DEVICE CHECK Battery Remaining Longevity 118.0 CV DEVICE CHECK Battery Voltage 3.170 CV D EVICE CHECK Battery CLASSIFIER TENDER Trigger 2.625 CV DEVICE CHECK Battery Status Middle of Service CV DEVICE CHECK Gorge Statistic RA Percent Paced 0.00 CV DEVICE CHECK Gorge Statistic RV Percent Paced 83.73 CV DEVICE CHECK Atrial Tachy Statistic AT/AF [place] Percent 100.00 CV DEVICE CHECK Lead Channel Sensing Intrinsic Amplitude 2.250 CV DEVICE CHECK Lead Channel Setting Sensing Sensitivity 0.30 CV DEVICE CHECK Lead Channel Impedance Value 532 CV DEVICE CHECK Lead Channel Sensing Intrinsic Amplitude 28.000 CV DEVICE CHECK Lead Channel Setting Sensing Sensitivity 0.90 CV DEVICE CHECK Lead Channel Impedance Value 342 CV DEVICE CHECK Lead Channel Pacing Threshold Amplitude 0.625 CV DEVICE CHECK Lead Channel Pacing Threshold Pulse Width 0.4 CV DEVICE CHECK Lead Channel RV Pacing Threshold Date 2025-04-10 CV DEVICE CHECK Lead Channel Setting Pacing Amplitude 3.250 CV DEVICE CHECK Lead Channel Setting Pacing Pulse Width 0.4 CV DEVICE CHECK Gorge Setting Mode (NBG Code) VVIR CV DEVICE CHECK Gorge Setting Lower Rate Limit 60 CV DEVICE CHECK Gorge Setting Maximum Sensor Rate 130 CV DEVICE CHECK Zone Setting Type Category AT/AF CV DEVICE CHECK Rate 171 CV DEVICE CHECK Therapies Some Rx Off CV DEVIC E CHECK Zone Setting Status Monitor CV DEVICE CHECK Zone ID 2 CV DEVICE CHECK Zone Setting Type Category VT CV DEVICE CHECK Rate 150 CV DEVICE CHECK Zone Setting Status ENABLED CV DEVICE CHECK Zone ID 6 CV DEVICE CHECK Date of Service 2025-04-21 CV DEVICE CHECK Anatomical Region Laterality Modality Device Interroga tion 04/10/2025 8:10 PM EDT Impressions 04/17/2025 1:53 AM EDT Normal Remote: No Events * Normal Device Function * Alerts or events: None * Battery: OK, 9.83 yrs * Sensing, impedance and thresholds reviewed * Programmed parameters reviewed * Presenting rhythm reviewed * Heart Rate Histograms reviewed * No significant changes noted *AF burden 100% Narrative Procedure Note Hitesh Roberts MD - 04/17/2025 IMPRESSION: Normal Remote: No Events * Normal Device Function * Alerts or events: None * Battery: OK, 9.83 yrs * Sensing, impedance and thresholds reviewed * Programmed parameters reviewed * Presenting rhythm reviewed * Heart Rate Histograms reviewed * No significant changes noted *AF burden 100% Result [facility] Hitesh Roberts MD CV IMPLANTABLE CARDIAC DEV ICE PROCEDURES Final Result * Depression Screening (02/13/2024) Depression Screening abstracted Result [facility] Historical Provider HEALTH MAINTENANCE Final Result * (ABNORMAL) Lipid panel (10/24/2021) LDL/HDL Ratio 4 0 - 4 Triglycerides 131 0 - 150 mg/dL Cholesterol 189 0 - 200 mg/dL HDL 54 >=40 mg/dL LDL Cholesterol 109(A) 0 - 100 mg/dL Blood Venous blood specimen / Unknown Result [facility] Historical Provider LAB BLOOD ORDERABLES Melany l Result from Last 3 Months or Most Recently Relevant to Health Maintenance Insurance MEDICARE [facility]) Care Teams Bacteriologist Food Relationship Specialty Start Date End Date Bryanna Zelaya MD [address] [place] [address] PCP - General 03/15/11
--- OUTSIDE RECORDS SUMMARY | 2025-06-17 12:01 | XMS_ITS | Encounter Summary ---
Author Organization [facility] Address [address] [place] [address] Phone Care Team Providers Care Electronics Tester Name Role Phone Bryanna Zelaya MD Primary Care Provider [phone] Philip Ritter MD Unavailable [phone] Alexandra Carpenter RN Unavailable [email or web address] Lisa Xiong RN Unavailable [email or web address] Encounter Details Date Type Department Care Team (Late st Contact Info) Description 01/29/2024 Procedure Pass [facility] - CT Main [place] [address] [place] [address] Social History Tobacco Use Types Packs/Day Years [...] st Contact Info) Description 04/17/2025 Procedure Pass [address] [address] 04/17/2025 Procedure Pass [address] [address] 07/06/2025 1:00 PM EST Appointment [address] [address] Philip Ritter MD [address] [place] [address] [email or web address] 07/14/2025 11:30 AM EST Office Visit [facility] [address] [place] [address] Philip Ritter MD [address] [place] [phone] [email or web address] documented as of this encounter Visit Diagnoses Not on filedocumented in this encounter Care Teams Electronics Tester Relationship Specialty Start Date End Date Bryanna Zelaya MD [address] [place] [phone] PCP - General Internal Medicine 11/15/15 Philip Ritter MD [address] [place] [address] [email or web address] Primary Oncologist Surgical Oncology 09/05/22 Alexandra Carpenter, RN [address] [place] [phone] [email or web address] Primary Infusion Nurse 09/07/22 Lisa Xiong RN [address] [place] [address] [email or web address] Associate Infusion Nurse 09/14/22 documented as of this encounter Additional Source Comments The information contained in this document represents components of the legal health record. It is not the complete legal health record.[facility]
--- OUTSIDE RECORDS SUMMARY | 2025-06-17 12:01 | XMS_ITS | Encounter Summary ---
Author Organization [facility] Address [address] [place] [address] Phone Care Team Providers Care Computer Programming Professor Name Role Phone Bryanna Zelaya MD Primary Care Provider [phone] Philip Ritter MD Unavailable [phone] Alexandra Carpenter RN Unavailable [email or web address] Lisa Xiong RN Unavailable [email or web address] Encounter Details Date Type Department Care Team (Late st Contact Info) Description 01/03/2022 Procedure Pass [facility] Imaging - CT Main [address] [address] Social History Tobacco Use Types Packs/Day Years [...] st Contact Info) Description 04/17/2025 Procedure Pass [address] [address] 04/17/2025 Procedure Pass [address] [address] 07/06/2025 1:00 PM EST Appointment [facility], Ct Scan - [facility] [address] [place] [address] Philip Ritter MD [address] [place] [address] [address] [place] [address] [email or web address] 07/14/2025 11:30 AM EST Office Visit [facility] [address] [place] [phone] Philip Ritter MD [address] [place] [address] [address] [place] [address] [email or web address] documented as of this encounter Visit Diagnoses Not on filedocumented in this encounter Care Teams Computer Programming Professor Relationship Specialty Start Date End Date Bryanna Zelaya MD [address] [place] [address] PCP - General Internal Medicine 11/15/15 Philip Ritter MD [address] [place] [address] [email or web address] Primary Oncologist Surgical Oncology 09/05/22 Alexandra Carpenter, RN [address] [place] [phone] [email or web address] Primary Infusion Nurse 09/07/22 Lisa Xiong RN [address] [place] [phone] [email or web address] Associate Infusion Nurse 09/14/22 documented as of this encounter Additional Source Comments The information contained in this document represents components of the legal health record. It is not the complete legal health record.[facility]
--- OUTSIDE RECORDS SUMMARY | 2025-06-17 12:01 | XMS_ITS ---
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 Current Treatment and Therapy Plans No current plan information found. Past Treatment and Therapy Plans No past plan information found. Lifetime Dose Tracking * Chemical Lifetime Dose Automatic Entry Manual Entr y CTDIvol 13.68 mGy 13.68 mGy 0 mGy Resolved Problems Problem Noted Date Diagnosed Date [...]
--- OUTSIDE RECORDS SUMMARY | 2025-06-17 12:01 | XMS_ITS | Encounter Summary ---
Author Organization [facility] Address [address] [place] [address] Phone Care Team Providers Care Gimp Tacker Name Role Phone Bryanna Zelaya MD Primary Care Provider [phone] Philip Ritter MD Unavailable [phone] Alexandra Carpenter RN Unavailable [email or web address] Lisa Xiong RN Unavailable [email or web address] Encounter Details Date Type Department Care Team (Late st Contact Info) Description 01/03/2022 Procedure Pass [facility] Imaging - CT Main [address] [address] Social History Tobacco Use Types Packs/Day Years [...] st Contact Info) Description 04/17/2025 Procedure Pass [address] [address] 04/17/2025 Procedure Pass [address] [address] 07/06/2025 1:00 PM EST Appointment [facility], Ct Scan - [facility] [address] [place] [address] Philip Ritter MD [address] [place] [address] [address] [place] [address] [email or web address] 07/14/2025 11:30 AM EST Office Visit [facility] [address] [place] [address] Philip Ritter MD [address] [place] [address] 7 [place] [address] [email or web address] documented as of this encounter Visit Diagnoses Not on filedocumented in this encounter Care Teams Gimp Tacker Relationship Specialty Start Date End Date Bryanna Zelaya MD [address] [place] [address] PCP - General Internal Medicine 11/15/15 Philip Ritter MD [address] [place] [address] [email or web address] Primary Oncologist Surgical Oncology 09/05/22 Alexandra Carpenter, RN [address] [place] [phone] [email or web address] Primary Infusion Nurse 09/07/22 Lisa Xiong RN [address] [place] [phone] [email or web address] Associate Infusion Nurse 09/14/22 documented as of this encounter Additional Source Comments The information contained in this document represents components of the legal health record. It is not the complete legal health record.[facility]
== END 2025-06-17 10:57 | disposition home or self-care (01) ==
LOC: HO.HPHYS 09:56
PROVIDERS: PCP Internal Medicine; Visit Provider Physical Medicine & Rehabilitation
DX: M25.552 Pain in left hip (principal); M16.12 Unilateral primary osteoarthritis, left hip
CPT/HCPCS: 99204; G2211

== ENCOUNTER → 2025-06-17 09:56 | Outpatient (BNVA) | payer MEDICARE, BC, SELFPAY | PROVIDERS: PCP Internal Medicine; Visit Provider Physical Medicine & Rehabilitation | DX: M25.552 Pain in left hip (principal); M16.12 Unilateral primary osteoarthritis, left hip | CPT/HCPCS: 99202 ==